=== PATIENT | female | born 1960 | race Caucasian/White ===

== ENCOUNTER 2018-01-28 11:28 | Emergency (ER) | payer OTHER, MEDICAID, SELFPAY ==
[2018-01-28 11:32] VITALS: BP 169/87; PULSE 91; RESP 16; TEMP 36.8; O2SAT 97; BMI 33.3
--- NOTE | 2018-01-28 11:47 | DI.RAD.S_ITS ---
PROCEDURE: XR FINGER LT MIN 2V INDICATIONS: 57 year-old female with left second finger laceration. TECHNIQUE: AP hand, 2 views of the left second finger(s) acquired. COMPARISON: [facility], CR, KNEE 3V LEFT, 09/03/2010, 15:01. FINDINGS: Bones: No fractures or dislocations. No suspicious bony lesions. Soft tissues: No radiopaque soft tissue foreign bodies. There is linear soft tissue defect involving the left second fingertip. IMPRESSION: Left second fingertip soft tissue injury, without radiopaque foreign bodies or underlying bony injuries. Dictated by: Zoran Guaman M.D. on 01/28/2018 at 12:34 Approved by: Zoran Guaman M.D. on 01/28/2018 at 12:36
--- NOTE | 2018-01-28 12:15 | ED.WOUNDLAC ---
HPI - Wound/Laceration General Chief Complaint: Wound/Laceration Stated Complaint: 'I NEED STICHES' Time Seen by Provider: 01/28/18 12:04 Source: patient Mode of arrival: ambulatory Limitations: no limitations History of Present Illness HPI narrative: This right-handed female was using an electric hedge clipper when she went to move the cord and cut her finger on the blade. This happened about 90 min prior to arrival. She states that it had been bleeding and throbbing, more dull pain now. She denies any weakness or paresthesias. She denies any other injury, any LOC or weakness. She states that her tetanus vaccine was updated about 1 year ago. Related Data Home Medications Medication Instructions Recorded Confirmed isotretinoin [Absorica] 10 mg PO Q DAY #0 11/16/16 etodolac 400 mg PO BID #0 06/18/17 pregabalin [Lyrica] 50 mg PO TID #0 11/02/17 Previous Rx's Medication Instructions Recorded omeprazole magnesium [Prilosec OTC] 40 mg PO QDAY #60 tab 11/02/17 fluticasone 1 spray INTRANASAL SEE 11/19/17 INSTRUCTIONS #16 gm methocarbamol 1,500 mg PO Q6HP PRN #60 tab 12/14/17 Allergies Allergy/AdvReac Type Severity Reaction Status Date / Time meperidine [From DEMEROL] Allergy Unknown Verified 01/28/18 11:32 GENERAL ANESTHESIA Allergy Severe BRADYCARDIA, Uncoded 01/28/18 11:32 VERY SLOW TO WAKE UP Review of Systems Review of Systems All systems reviewed & are unremarkable except as noted in HPI and below PFSH Surgical History History of tonsillectomy Status post endoscopy Status post tubal ligation Family History Child Diabetes mellitus Child Age: 37 Environmental allergies Edema Child Age: 33 Fibromyalgia Diabetes mellitus Endometriosis Gallstones Father Heart disease High cholesterol Emphysema lung Mother Diabetes mellitus Hypertension Arthritis Sister Fibromyalgia Cushings syndrome Addisons disease Hyperthyroidism Sister Fibromyalgia High cholesterol Sister Fibromyalgia Emphysema lung COPD (chronic obstructive pulmonary disease) Arthritis Exam Narrative Exam Narrative: GENERAL APPEARANCE: Patient sitting comfortably, in no distress. LUNGS: Clear to auscultation bilaterally. HEART: Rate and rhythm regular without murmur, normal S1 and S2, no S3 or S4. DERM: L. PF there are 2 curvilinear lacerations, one inside the other, at the distal central pad. Edges are 5cm each (each wound 1cm total length), width 3-6mm (irregular). Deepest depth 4mm, deeper on the medial side. There does not appear to be any nail damage. No active bleeding. No visible tendon, muscle, or FB MS: L. PF full AROM with strength intact against resistance in all mcdonald NV: L. PF sensation is grossly intact, nail is warm and pink with brisk cap refill Procedures Joint Aspiration/Injection Laceration 1: Site: hand Side (If applicable): left (1cm curvilinear with partial avulsion) Local Anesthetic: lidocaine 2% Amount of anesthesia used (mL): 3 Pre-repair: wound explored, irrigated extensively and deep structures intact Skin layer closed with: nylon Size (cm): 5-0 Number of sutures: 5 Technique: simple, interrupted MDM - Wound/Laceration Differential Diagnosis Differential diagnosis: Likely laceration Imaging Data xray hand: Radiologist's impression: PATIENT NAME: CHRIS HATFIELD : 1960 EXAM DATE: 01/28/2018 11:[address] FRIDA JACKSON D.O. CC: MODALITY: CR PATIENT TYPE: Pre CONTRAST MEDIA: STATION ID: [id number] FLUORO TIME: PROCEDURE: XR FINGER LT MIN 2V INDICATIONS: 57 year-old female with left second finger laceration. TECHNIQUE: AP hand, 2 views of the left second finger(s) acquired. COMPARISON: [facility], , KNEE 3V LEFT, 09/03/2010, 15:01. FINDINGS: Bones: No fractures or dislocations. No suspicious bony lesions. Soft tissues: No radiopaque soft tissue foreign bodies. There is linear soft tissue defect involving the left second fingertip. IMPRESSION: Left second fingertip soft tissue injury, without radiopaque foreign bodies or underlying bony injuries. Dictated by: Zoran Guaman M.D. on 01/28/2018 at 12:34 Approved by: Zoran Guaman M.D. on 01/28/2018 at 12:36 Course Hospital Course: Laceration was irregular over the finger tip. One suture was placed through the partially avulsed skin as an anchor, others were placed over. It does appear viable at this point, but did advise patient it is possible that this skin may not heal and needs to be sure to have this recheck Orders Ordered: ED Orders 01/28/18 11:47 XR finger LT min 2V Stat Last Vital Signs Temp 98.3 F 01/28/18 11:32 Pulse 65 01/28/18 14:13 Resp 18 01/28/18 14:13 BP 179/94 H 01/28/18 14:13 Pulse Ox 98 01/28/18 14:13 Discharge Plan Departure Patient Disposition: Home, Self-Care Clinical Impression: Laceration of left index finger Discharge Date/Time: 01/28/18 14:14 Interventions: ED Discharge Assessment Last Done: 01/28/18 14:13 Instructions: DI for Laceration Repair Activity Restrictions/Additional Instructions: Keep the wound clean and dry. Monitor for any signs of infection as we talked about and see your PCP or return right away if any. You should have a suture check in 6-7 days and these will probably be ready for removal. As we talked about, it is not clear whether the skin in the middle of the wound is viable due to the bruising but it appears so now. I have placed 1 suture through the skin and the others over it to tack it down and help it heal on the shallower side. Wear the splint for protection and comfort Prescriptions: No Action isotretinoin [Absorica] 10 MG capsule 10 mg PO Q DAY Qty: 0 RF: 0 etodolac 400 MG tablet 400 mg PO BID Qty: 0 RF: 0 pregabalin [Lyrica] 50 MG capsule 50 mg PO TID Qty: 0 RF: 0 omeprazole magnesium [Prilosec OTC] 20 MG tablet,delayed release (DR/EC) 40 mg PO QDAY Qty: 60 RF: 0 fluticasone 16 GM spray,suspension 1 spray Intranasal SEE INSTRUCTIONS Qty: 16 RF: 5 methocarbamol 750 MG tablet 1,500 mg PO Q6HP PRNQty: 60 RF: 1 Referrals: Scott Mckinney MD [Primary Care Provider] -
--- NOTE | 2018-01-28 13:52 | PC.NURSE ---
fishfader repaired suture index finger. site cleaned with hibiclens and saline, dried, bacitracin ointment applied with tube messi, also with metal splint applied. +dcms noted pt with facial expression, with severe pain, pt states, only can take oxycodone 10mg. bp 181/100 provider made aware. no new orders.
[2018-01-28 13:57] VITALS: BP 181/100; PULSE 66; RESP 18; O2SAT 97
[2018-01-28 14:13] VITALS: BP 179/94; PULSE 65; RESP 18; O2SAT 98
== END 2018-01-28 14:14 | disposition home or self-care (01) ==
PROVIDERS: Emergency Provider Internal Medicine; PCP Family Medicine
DX: S61.211A Laceration without foreign body of left index finger without damage to nail, initial encounter (principal); X58.XXXA Exposure to other specified factors, initial encounter
CPT/HCPCS: 12001; 73140; 99283

== ENCOUNTER → 2018-02-15 08:23 | Outpatient (CLI) | payer OTHER, MEDICAID, SELFPAY ==
[2018-02-15 10:05] LABS: Alanine Aminotransferase 32 IU/L (9-52); Aspartate Aminotransferase 28 IU/L (14-36); Cholesterol 264 mg/dL (140-199); HDL Cholesterol 89 mg/dL (40-60); LDL Cholesterol Calculated 133 mg/dL (<100); Triglycerides 208 mg/dL (35-150)
[2018-02-17 01:17] LABS: (tTG) Ab, IgA < 3 U/mL (< 4)
== END ==
PROVIDERS: PCP Family Medicine; Visit Provider Dermatology
DX: M79.7 Fibromyalgia (principal); Z79.899 Other long term (current) drug therapy
CPT/HCPCS: 36415; 80061; 83516; 84450; 84460; 86255

== ENCOUNTER → 2018-03-22 07:19 | Outpatient (CLI) | payer OTHER, MEDICAID, SELFPAY ==
[2018-03-22 08:55] LABS: BUN Creatinine Ratio 31.3 (6-22); Blood Urea Nitrogen 25 mg/dL (7-17); Calcium 9.2 mg/dL (8.4-10.2); Carbon Dioxide 28 mmol/L (22-32); Chloride 102 mmol/L (98-107); Estimated Glomerular Filt Rate > 60.0 mL/min (>60); Glucose 93 mg/dL (70-100); HEMOLYSIS < 15 (0-50); Potassium 4.6 mmol/L (3.4-5.1); Sodium 142 mmol/L (137-145)
[2018-03-22 08:57] LABS: Hemoglobin A1C% w Est Avg Glu 5.7 % (4.0-6.0)
== END ==
PROVIDERS: PCP Family Medicine; Visit Provider Family Medicine
DX: R63.2 Polyphagia (principal); E16.2 Hypoglycemia, unspecified
CPT/HCPCS: 36415; 80048; 83036

== ENCOUNTER → 2018-06-17 08:38 | Outpatient (CLI) | payer OTHER, MEDICAID, SELFPAY ==
--- NOTE | 2018-06-17 | DI.MRI.S_ITS ---
PROCEDURE: MR CERVICAL SPINE WO CON INDICATIONS: CERVICAL RADICULOPATHY TECHNIQUE: Noncontrast sagittal T1 spin echo and T2 fast spin echo, sagittal STIR, foraminal oblique sagittal T2 fast spin echo, and axial gradient echo or T2 fast spin echo through the cervical spine. COMPARISON: Located Within [facility], MR, C-SPINE WITHOUT CONTRAST, 12/29/2016, 16:56. FINDINGS: Image quality: Excellent. Alignment and Curvature: There is loss of normal cervical lordosis. There is mild grade 1 anterolisthesis of C7 on T1. Bone Marrow: Marrow demonstrates normal overall signal. There is mild reactive signal within the endplates adjacent to the C3-C4, C4-C5, C5-C6, and C6-C7 intervertebral discs. Spinal Cord: Visualized spinal cord has normal size and signal. No cerebellar tonsillar herniation. Paraspinous Soft Tissues: No paravertebral masses. Prevertebral soft tissues are normal in thickness. C2-C3: Disc desiccation. Bilateral facet hypertrophy. Mild canal stenosis. No foraminal stenosis. No change. C3-C4: Congenital canal stenosis. Mild disc desiccation and diffuse disc bulge. Moderate facet and uncovertebral hypertrophy. Moderate canal stenosis. Moderate left and mild right foraminal stenosis. No change. C4-C5: Moderate disc desiccation. Mild diffuse disc bulge. Congenital canal stenosis. Moderate bilateral facet and uncovertebral hypertrophy. Moderate canal stenosis. Moderate left greater than right foraminal stenosis. No change. C5-C6: Moderate disc desiccation and moderate diffuse disc bulge. Moderate disc height loss. Congenital canal stenosis. Moderate facet and uncovertebral hypertrophy. Moderate to severe canal stenosis. Minimal cord flattening. Moderate foraminal stenosis bilaterally. No change. C6-C7: Moderate disc desiccation and moderate diffuse disc bulge. Mild disc of loss. Congenital canal stenosis. Bilateral mild facet and uncovertebral hypertrophy. Moderate canal stenosis. Mild foraminal stenosis bilaterally. No change. C7-T1: Mild disc loss and desiccation. Mild diffuse disc bulge. Mild facet and uncovertebral hypertrophy bilaterally. Mild canal stenosis. Mild bilateral foraminal stenosis. No change. IMPRESSION: 1. Diffuse congenital canal stenosis, with superimposed disc and facet disease, as well as uncovertebral hypertrophy. 2. Multilevel canal stenoses, worst at C5-C6, where there is minimal cord flattening, as before. 3. No change in multilevel foraminal stenoses as described above. Dictated by: Jodi Vanessa M.D. on 06/17/2018 at 9:52 Approved by: Jodi Vanessa M.D. on 06/17/2018 at 10:01
== END ==
PROVIDERS: PCP Family Medicine; Visit Provider Neurological Surgery
DX: M50.11 Cervical disc disorder with radiculopathy, high cervical region (principal); M48.02 Spinal stenosis, cervical region
CPT/HCPCS: 72141

== ENCOUNTER → 2018-09-28 15:21 | Outpatient (CLI) | payer OTHER, MEDICAID, SELFPAY ==
[2018-09-28 16:41] LABS: Erythrocyte Sedimentation Rate 36 MM/HR (0-20)
== END ==
PROVIDERS: PCP Family Medicine; Visit Provider Specialist
DX: M31.6 Other giant cell arteritis (principal)
CPT/HCPCS: 36415; 85651; 86140

== ENCOUNTER → 2018-11-24 12:57 | Outpatient (CLI) | payer OTHER, MEDICAID, SELFPAY ==
--- NOTE | 2018-11-24 13:01 | DI.MRI.S_ITS ---
PROCEDURE: MR HEAD/BRAIN WO CON INDICATIONS: Rule out mass lesion TECHNIQUE: Non-contrast axial T1 spin echo, axial T2 fast spin echo, sagittal and axial FLAIR, coronal T2 fast spin echo, axial gradient echo, axial diffusion and ADC through the brain. COMPARISON: None. FINDINGS: Image quality: Excellent. CSF spaces: Ventricles appear symmetric in size and shape. Basal cisterns are patent. No extra-axial fluid collections. Brain: No intracranial bleeds or mass effects. There is cerebral volume loss for age. There are periventricular and deep white matter chronic small vessel ischemic changes. Brainstem appears normal. Diffusion-weighted images show no acute ischemic insults. No chronic ischemic insults. Normal intravascular flow voids are present. Skull and face: Calvarial bone marrow is normal in signal. Orbits are normal. Sinuses: Sinuses and mastoids are clear. IMPRESSION: Negative evaluation of the internal auditory canals and brain. Negative evaluation of the orbits. No acute process. Dictated by: Jodi Vanessa M.D. on 11/24/2018 at 14:48 Approved by: Jodi Vanessa M.D. on 11/24/2018 at 14:51
--- NOTE | 2018-11-24 13:01 | DI.MRI.S_ITS ---
PROCEDURE: MR ANGIO HEAD WO CON INDICATIONS: Right eye pain and right temporal pain. r/o mass TECHNIQUE: Noncontrast axial 3-D [id number] MR angiogram, with 3-dimensional maximum intensity projection (MIP) reformats of the internal carotid arteries and posterior circulation then performed. COMPARISON: [facility], , MR HEAD/BRAIN WO CON, 11/24/2018, 13:52. FINDINGS: Image quality: Excellent. Anterior circulation: Intracranial internal carotid arteries demonstrate normal size and intraluminal flow signal. The flow within the paired anterior cerebral arteries is normal and symmetric. The flow within the middle cerebral arteries is normal and symmetric. The anterior communicating artery is seen. No stenoses, occlusions, or aneurysms. Posterior circulation: Visualized portions of the vertebral arteries demonstrate normal caliber, and join to form a normal appearing basilar artery. Patient is right vertebral artery dominant. The flow within the posterior cerebral arteries is normal and symmetric. No stenoses, occlusions, or aneurysms. IMPRESSION: Negative examination. Dictated by: Alma Bloom MD, PhD on 11/24/2018 at 15:02 Approved by: Alma Bloom MD, PhD on 11/24/2018 at 15:05
== END ==
PROVIDERS: PCP Family Medicine; Visit Provider Family Medicine
DX: G50.0 Trigeminal neuralgia (principal); H57.11 Ocular pain, right eye
CPT/HCPCS: 70544; 70551

== ENCOUNTER → 2020-11-05 16:06 | Outpatient (CLI) | payer OTHER, MEDICAID, SELFPAY | PROVIDERS: PCP Family Medicine; Visit Provider Family Medicine | DX: R32 Unspecified urinary incontinence (principal) | CPT/HCPCS: 87086 ==

== ENCOUNTER 2020-11-14 11:15 | Outpatient (RCR) | payer OTHER, MEDICAID, SELFPAY ==
--- NOTE | 2020-08-20 16:46 | PT.OIE ---
Current Diagnoses Other acquired deformities of right foot (08/20/20) Other acquired deformities of unspecified foot (08/20/20) Plantar fascial fibromatosis (08/20/20) Past Medical History (Last Reviewed 09/28/18 @ 14:37 by Sourav Steward PA-C) Acne (~1990) Bronchitis Chicken pox (~1958) Elbow pain (~2012) Foot pain (~2012) Gastric ulcer (~1999) GERD (gastroesophageal reflux disease) (~1999) Hemicrania continua History of urinary incontinence (~1980) Migraines Seasonal allergies (~1977) Wrist pain (~2005) Past Surgical History (Last Reviewed 09/28/18 @ 14:37 by Sourav Steward PA-C) Anesthesia History of tonsillectomy (~1970) Status post endoscopy (~2000) Status post tubal ligation (~1981) Visit Care Team Role Provider Type Scott Mckinney MD Primary Care Provider Physician Specialty: Family Practice Address: [address] [place] [address], [id number] Email: [email or web address] Ben David DPM Attending Provider Non-Staff Referring Provider Specialty: Podiatry Address: [address] [place] [address], [id number] Email: Physical Therapy Initial Evaluation PT-OP-A Visit Information Start: 08/20/20 15:04 Freq: Status: Active Protocol: Document 08/20/20 15:04 (Rec: 08/20/20 15:15 [email or web address]) Out-Patient Physical Therapy Visit Information Visit Information Visit Type Initial Evaluation Visit Start Time 14:18 Visit Stop Time 15:00 Total Visit Minutes 42 Visit Number 1/ Number of 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 Her pain started getting worse since 5-6 months ago who started walking her dogs daily for 2-3 blocks each time. Her pain level is 9/10 on L and 7/10 on R. Pt went to see and dx with B plantar fasciatis. She c/o worse pain in the morning especially the first few steps after she gets up. Prolonged standing and walking also increase her pain. Pt stated that she is pretty much home bound at this point who does gorcery shop twice a week only d/t significant heel pain. Treatment Goals Patient/Caregiver Goals 1. To be pain free at both heels for standing and walking 2. To be able to walk her dog at outdoor in a daily basis Personal Factors Other Personal Factors That May Effect fibromyalgia Therapy/Recovery PT-OP-C Subjective Start: 08/20/20 15:04 Freq: Status: Active Protocol: Document 08/20/20 15:04 HH (Rec: 08/20/20 15:15 [email or web address]) Patient Questionnaires Foot & Ankle Ability Measure- ADL and Sports FAAM-ADL Score 23 FAAM-ADL Impairment 60 to 79% Impaired (Score 16- 32) FAAM-Sport Impairment 80 to 99% Impaired (Score 1-5) Lower Extremity Functional Scale LEFS Score 24 LEFS Impairment 60 to 79% Impaired (Score 17- 31) OP-PT Pain Assessment Location L heel Pain Location Details heel and insertion of plantar fascia Intensity 9 Scale Used Numeric (0 - 10) Description Aching,With Movement Frequency Constant Pain Aggravating Factors Position,ADL's,Activity, Exercise,Standing,Walking, Stair Climbing Pain Alleviating Factors Inactivity,Lying Supine R heel Pain Location Details heel and insertion of plantar fascia Intensity 7 Scale Used Numeric (0 - 10) Description Aching,With Movement Frequency Constant Pain Aggravating Factors Position,ADL's,Activity, Exercise,Standing,Walking, Stair Climbing Pain Alleviating Factors Inactivity,Lying Supine PT-OP-D Balance Start: 08/20/20 15:04 Freq: Status: Active Protocol: Document 08/20/20 15:04 HH (Rec: 08/20/20 15:15 [email or web address]) Balance Tests Single Limb Standing Single Limb- Right 8 Single Limb- Left 5 PT-OP-F Manual Assessment Start: 08/20/20 15:04 Freq: Status: Active Protocol: Document 08/20/20 15:04 (Rec: 08/20/20 16:46 [email or web address]) Manual Assessments Soft Tissue Assessment Soft Tissue Mobility Assessment significant tenderness to pressure at (L worse than R) insertion of plantar fascia , gastro, achilles insertion bilaterally PT-OP-G Mobility & Gait Start: 08/20/20 15:04 Freq: Status: Active Protocol: Document 08/20/20 15:04 (Rec: 08/20/20 16:46 [email or web address]) OP Gait Assessment Gait Deviations General Gait Pattern Decreased Stride Length, Decreased Feet Clearance Factors Limiting Gait Function Factors Limiting Gait Function Decreased Activity Tolerance, Decreased Strength,Limited Range of Motion,Pain,Poor Balance Comments Gait Comments pt amb with flat foot gait = lack of heel strike and toe push off ( L worse with R) PT-OP-K Range of Motion Start: 08/20/20 15:04 Freq: Status: Active Protocol: Document 08/20/20 15:04 (Rec: 08/20/20 16:46 [email or web address]) Hip Goniometric Range of Motion Hip Right Passive Straight Leg Raise 70 Left Passive Straight Leg Raise 60 Ankle and Foot Goniometric Range of Motion Ankle and Foot Right Active Ankle/Foot ROM WFL No Testing Position Supine Dorsiflexion with Knee Flexed 0 Dorsiflexion with Knee Extended 13 Plantarflexion 40 Inversion 25 Comments B calf raises= 9 times (not full range d/t pain) Left Active Ankle/Foot ROM WFL No Testing Position Supine Dorsiflexion with Knee Flexed 7 Inversion 33 Eversion 23 Comments DF with knee extended = -4 into PF B calf raises= 9 times (not full range d/t pain) Toe Range of Motion Toe Left Great Toe Toe ROM WFL No MTP Flexion Active (degrees) 18 MTP Extension Active (degrees) 20 Right Great Toe Toe ROM WFL No MTP Flexion Active (degrees) 40 MTP Extension Active (degrees) 30 PT-OP-M Strength Start: 08/20/20 15:04 Freq: Status: Active Protocol: Document 08/20/20 15:04 (Rec: 08/20/20 16:46 [email or web address]) Hip Strength Hip Manual Muscle Testing Right Flexion (L2) 4- Good- Extension (S1) 4- Good- Abduction 3+ Fair+ Adduction 4 Good Left Flexion (L2) 4- Good- Extension (S1) 4- Good- Abduction 3+ Fair+ Adduction 4- Good- Knee Strength Knee Manual Muscle Testing Right Flexion (S2) 4 Good Extension (L3) 4+ Good+ Left Flexion (S2) 4 Good Extension (L3) 4+ Good+ Ankle/Foot Strength Ankle and Foot Manual Muscle Testing Right Dorsiflexion (L4) 4 Good Plantarflexion (S1) 3+ Fair+ Inversion 4- Good- Eversion (S1) 4- Good- Left Dorsiflexion (L4) 4- Good- Plantarflexion (S1) 3+ Fair+ Inversion 4- Good- Eversion (S1) 4- Good- PT-OP-Q Treatments Start: 08/20/20 15:04 Freq: Status: Active Protocol: Document 08/20/20 15:04 (Rec: 08/20/20 16:46 [email or web address]) Manual Therapy Treatment Soft Tissue Mobilization gastro Body Location bilateral Mobilization Type Myofascial Release,Sustained Pressure,Trigger Point Release Intensity/Depth Moderate Body Position Prone Comments tenderness medial > lateral PT-OP-T Assessment and Plan Start: 08/20/20 15:04 Freq: Status: Active Protocol: Document 08/20/20 15:04 (Rec: 08/20/20 16:46 [email or web address]) Physical Therapy Assessment Rehab Potential Rehabilitation Potential Excellent Evaluation Complexity Number of Personal Factors/Comorbidities 1-2 Number of Body Systems Impaired 1-2 Clinical Presentation at Evaluation Stable Impairments Impairments Activity Tolerance,Balance, Edema,Functional Activities, Functional Mobility,Gait,Pain, Posture,ROM,Soft Tissue Mobility,Strength Goals return to walking Impairment unable to tolerate grocery shopping Short Term Goal (STG) pt will be able to complete grocery shopping at [employer] with pain no more than 5. STG Duration 5 weeks Charge Lpn Goal (LTG) pt will be able to walk her dog daily for 3 blocks with pain no more than 3/10 LTG Duration 10 weeks ROM Impairment pt has very limited DF d/t calf tightness Short Term Goal (STG) pt will gain up to 5 degrees of DF bilaterally with knee extended. STG Duration 5 weeks Senior Living Goal (LTG) pt will gain up to 10 degrees of DF bilaterally with knee extended so she can demonstrate heel strike during initial contact. LTG Duration 10 weeks FAAM Impairment pt scores 21 on FAAM (ADLs) Short Term Goal (STG) pt will score 30 or above on FAAM (ADLS) to improve her ankle mobility and strength for functional activities. STG Duration 5 weeks Senior Living Goal (LTG) pt will score 40 or above on FAAM (ADLS) to improve her ankle mobility and strength for functional activities. LTG Duration 10 weeks LEFS Impairment pt scores 24 on LEFS Short Term Goal (STG) pt will score 35 or above on LEFS to improve her quality of life STG Duration 5 weeks Senior Living Goal (LTG) pt will score 40 or above on LEFS to improve her quality of life LTG Duration 10 weeks Assessment Summary Assessment Pt is a 60 yo female here for B heel pain with difficulty in walking and standing. Upon assessment, pt presents B plantar fasciitis L worse than R. She presents significant tightness at B gastronemius complex who's DF are only (R= 0, L= 4 into PF) with knee extended but WFL with knee flexed (R=13,L=7). Pt overall shows poor posterior chain flexibility and she has significant tenderness to pressure at B gastro. She also has poor ankle strength, mobility and balance who demonstrates flat foot gait pattern with dec heel strikes and toes push off. Pt will benefit from skilled therapy to improve her ankle mobility, strength, balance in order for her to return to her daily walking routine with proper gait mechanics in pain free. Physical Therapy Plan Frequency and Duration Frequency of Treatment 2x/wk x2, 1x/wk x 4 Duration of Treatment 10 weeks Plan of Care Start Date 08/20/20 Plan of Care End Date 11/03/20 Therapeutic Interventions Therapeutic Interventions Aquatic Therapy,Balance Training,Gait Training,Home Exercise Program,Joint Mobilizations,Manual Therapy, Neuromuscular Re-education, Orthotic/Prosthetic Management ,Patient/Caregiver Education, Self-Care/Home Management,Soft Tissue Mobilization,Taping, Therapeutic Activities, Therapeutic Exercises Modalities Cold Pack/Ice Massage,Electric Stimulation,Hot Packs, Infrared Therapy,Ultrasound Next Visit Focus/Plan Next Note Type Treatment Note Next Visit Plan manual , STM on gastro calf stretch, big toe stretch toe curl, short foot
--- NOTE | 2020-08-20 16:46 | PT.OPPOC ---
Physical, Occupational & Speech Therapy At [facility] Current Diagnoses Other acquired deformities of right foot (08/20/20) Other acquired deformities of unspecified foot (08/20/20) Plantar fascial fibromatosis (08/20/20) Visit Care Team Role Provider Type Scott Mckinney MD Primary Care Provider Physician Specialty: Family Practice Address: [address] [place] [address], [id number] Email: [email or web address] DPM Attending Provider Non-Staff Referring Provider Specialty: Podiatry Address: [address] [place] [address], [phone] Email: Plan Of Care PT-OP-T Assessment and Plan Start: 08/20/20 15:04 Freq: Status: Active Protocol: Document 08/20/20 15:04 (Rec: 08/20/20 16:46 [email or web address]) Physical Therapy Assessment Rehab Potential Rehabilitation Potential Excellent Evaluation Complexity Number of Personal Factors/Comorbidities 1-2 Number of Body Systems Impaired 1-2 Clinical Presentation at Evaluation Stable Impairments Impairments Activity Tolerance,Balance, Edema,Functional Activities, Functional Mobility,Gait,Pain, Posture,ROM,Soft Tissue Mobility,Strength Goals return to walking Impairment unable to tolerate grocery shopping Short Term Goal (STG) pt will be able to complete grocery shopping at [facility] with pain no more than 5. STG Duration 5 weeks Longterm Goal (LTG) pt will be able to walk her dog daily for 3 blocks with pain no more than 3/10 LTG Duration 10 weeks ROM Impairment pt has very limited DF d/t calf tightness Short Term Goal (STG) pt will gain up to 5 degrees of DF bilaterally with knee extended. STG Duration 5 weeks Longterm Goal (LTG) pt will gain up to 10 degrees of DF bilaterally with knee extended so she can demonstrate heel strike during initial contact. LTG Duration 10 weeks FAAM Impairment pt scores 21 on FAAM (ADLs) Short Term Goal (STG) pt will score 30 or above on FAAM (ADLS) to improve her ankle mobility and strength for functional activities. STG Duration 5 weeks Penology Professor Goal (LTG) pt will score 40 or above on FAAM (ADLS) to improve her ankle mobility and strength for functional activities. LTG Duration 10 weeks LEFS Impairment pt scores 24 on LEFS Short Term Goal (STG) pt will score 35 or above on LEFS to improve her quality of life STG Duration 5 weeks Penology Professor Goal (LTG) pt will score 40 or above on LEFS to improve her quality of life LTG Duration 10 weeks Assessment Summary Assessment Pt is a 60 yo female here for B heel pain with difficulty in walking and standing. Upon assessment, pt presents B plantar fasciitis L worse than R. She presents significant tightness at B gastronemius complex who's DF are only (R= 0, L= 4 into PF) with knee extended but WFL with knee flexed (R=13,L=7). Pt overall shows poor posterior chain flexibility and she has significant tenderness to pressure at B gastro. She also has poor ankle strength, mobility and balance who demonstrates flat foot gait pattern with dec heel strikes and toes push off. Pt will benefit from skilled therapy to improve her ankle mobility, strength, balance in order for her to return to her daily walking routine with proper gait mechanics in pain free. Physical Therapy Plan Frequency and Duration Frequency of Treatment 2x/wk x2, 1x/wk x 4 Duration of Treatment 10 weeks Plan of Care Start Date 08/20/20 Plan of Care End Date 11/03/20 Therapeutic Interventions Therapeutic Interventions Aquatic Therapy,Balance Training,Gait Training,Home Exercise Program,Joint Mobilizations,Manual Therapy, Neuromuscular Re-education, Orthotic/Prosthetic Management ,Patient/Caregiver Education, Self-Care/Home Management,Soft Tissue Mobilization,Taping, Therapeutic Activities, Therapeutic Exercises Modalities Cold Pack/Ice Massage,Electric Stimulation,Hot Packs, Infrared Therapy,Ultrasound Next Visit Focus/Plan Next Note Type Treatment Note Next Visit Plan manual , STM on gastro calf stretch, big toe stretch toe curl, short foot Plan of Care Dates Plan of Care Start Date 08/20/20 Plan of Care End Date 11/03/20 Electronically Signed by: Merary Jaimes, PT 08/20/20 [id number] Please Sign and Return: I have reviewed this Plan of Care and certify that the skilled therapy services above are required to meet the patient?s needs. Physician Signature Date Printed Name and Credentials Clinical Instructor Signature Printed Name and Credentials
--- NOTE | 2020-08-22 16:10 | PT.OTN ---
Current Diagnoses Other acquired deformities of right foot (08/22/20) Other acquired deformities of unspecified foot (08/22/20) Plantar fascial fibromatosis (08/22/20) Physical Therapy Treatment Note PT-OP-A Visit Information Start: 08/20/20 15:04 Freq: Status: Active Protocol: Document 08/22/20 15:21 HH (Rec: 08/22/20 16:10 [id number]) Out-Patient Physical Therapy Visit Information Visit Information Visit Type Treatment Note Visit Start Time 15:18 Visit Stop Time 16:00 Total Visit Minutes 42 Visit Number 2/9 Number of ENGINEER CHIEF Visits 0 PT-OP-B Current Condition Start: 08/20/20 15:04 Freq: Status: Active Protocol: Document 08/20/20 15:04 HH (Rec: 08/20/20 15:15 [email or web address]) Current Condition History of Current Condition Onset Date 5-6 months ago Current Complaints B heel pain L worse than R, difficulty in walking and standing History of Current Condition Pt is a 60yo female here for chronic bilateral heel pain L worse than R. Her pain started getting worse since 5-6 months ago who started walking her dogs daily for 2-3 blocks each time. Her pain level is 9/10 on L and 7/10 on R. Pt went to see and dx with B plantar fasciatis. She c/o worse pain in the morning especially the first few steps after she gets up. Prolonged standing and walking also increase her pain. Pt stated that she is pretty much home bound at this point who does gorcery shop twice a week only d/t significant heel pain. Treatment Goals Patient/Caregiver Goals 1. To be pain free at both heels for standing and walking 2. To be able to walk her dog at outdoor in a daily basis Personal Factors Other Personal Factors That May Effect fibromyalgia Therapy/Recovery PT-OP-C Subjective Start: 08/20/20 15:04 Freq: Status: Active Protocol: Document 08/22/20 15:21 HH (Rec: 08/22/20 16:10 [id number]) OP-PT Subjective Patient Comments Patient Comments Im doing okay today Patient Reported Progress Same PT-OP-D Balance Start: 08/20/20 15:04 Freq: Status: Active Protocol: Document 08/20/20 15:04 HH (Rec: 08/20/20 15:15 [email or web address]) Balance Tests Single Limb Standing Single Limb- Right 8 Single Limb- Left 5 PT-OP-F Manual Assessment Start: 08/20/20 15:04 Freq: Status: Active Protocol: Document 08/20/20 15:04 (Rec: 08/20/20 16:46 [email or web address]) Manual Assessments Soft Tissue Assessment Soft Tissue Mobility Assessment significant tenderness to pressure at (L worse than R) insertion of plantar fascia , gastro, achilles insertion bilaterally PT-OP-G Mobility & Gait Start: 08/20/20 15:04 Freq: Status: Active Protocol: Document 08/20/20 15:04 (Rec: 08/20/20 16:46 [email or web address]) OP Gait Assessment Gait Deviations General Gait Pattern Decreased Stride Length, Decreased Feet Clearance Factors Limiting Gait Function Factors Limiting Gait Function Decreased Activity Tolerance, Decreased Strength,Limited Range of Motion,Pain,Poor Balance Comments Gait Comments pt amb with flat foot gait = lack of heel strike and toe push off ( L worse with R) PT-OP-K Range of Motion Start: 08/20/20 15:04 Freq: Status: Active Protocol: Document 08/20/20 15:04 (Rec: 08/20/20 16:46 [email or web address]) Hip Goniometric Range of Motion Hip Right Passive Straight Leg Raise 70 Left Passive Straight Leg Raise 60 Ankle and Foot Goniometric Range of Motion Ankle and Foot Right Active Ankle/Foot ROM WFL No Testing Position Supine Dorsiflexion with Knee Flexed 0 Dorsiflexion with Knee Extended 13 Plantarflexion 40 Inversion 25 Comments B calf raises= 9 times (not full range d/t pain) Left Active Ankle/Foot ROM WFL No Testing Position Supine Dorsiflexion with Knee Flexed 7 Inversion 33 Eversion 23 Comments DF with knee extended = -4 into PF B calf raises= 9 times (not full range d/t pain) Toe Range of Motion Toe Left Great Toe Toe ROM WFL No MTP Flexion Active (degrees) 18 MTP Extension Active (degrees) 20 Right Great Toe Toe ROM WFL No MTP Flexion Active (degrees) 40 MTP Extension Active (degrees) 30 PT-OP-M Strength Start: 08/20/20 15:04 Freq: Status: Active Protocol: Document 08/20/20 15:04 (Rec: 08/20/20 16:46 [email or web address]) Hip Strength Hip Manual Muscle Testing Right Flexion (L2) 4- Good- Extension (S1) 4- Good- Abduction 3+ Fair+ Adduction 4 Good Left Flexion (L2) 4- Good- Extension (S1) 4- Good- Abduction 3+ Fair+ Adduction 4- Good- Knee Strength Knee Manual Muscle Testing Right Flexion (S2) 4 Good Extension (L3) 4+ Good+ Left Flexion (S2) 4 Good Extension (L3) 4+ Good+ Ankle/Foot Strength Ankle and Foot Manual Muscle Testing Right Dorsiflexion (L4) 4 Good Plantarflexion (S1) 3+ Fair+ Inversion 4- Good- Eversion (S1) 4- Good- Left Dorsiflexion (L4) 4- Good- Plantarflexion (S1) 3+ Fair+ Inversion 4- Good- Eversion (S1) 4- Good- PT-OP-Q Treatments Start: 08/20/20 15:04 Freq: Status: Active Protocol: Document 08/22/20 15:21 (Rec: 08/22/20 16:10 [id number]) Therapeutic Exercises Supine Exercises passive DF stretch Side bilateral Reps/Minutes 10 sec x 5 Comments PT assisted Sitting Exercises ankle DF and PF Side bilateral Reps/Minutes 10 x2 Comments DF and PF tennis ball release Sitting Exercise Name at plantar fascia Side bilateral Comments for HEP plantar fascia stretch Side bilateral Comments for HEP Standing Exercises gastro stretch Standing Exercise Name staggered stance Side bilateral Reps/Minutes 10 sec hold x4 Comments cues for foot alignment Manual Therapy Treatment Soft Tissue Mobilization anterior tib Mobilization Type Sustained Pressure,Trigger Point Release Intensity/Depth Moderate Body Position Supine plantar fascia Mobilization Type Sustained Pressure,Trigger Point Release Intensity/Depth Moderate Body Position Supine gastro Body Location bilateral Mobilization Type Myofascial Release,Sustained Pressure,Trigger Point Release Intensity/Depth Moderate Body Position Prone Comments tenderness medial > lateral PT-OP-T Assessment and Plan Start: 08/20/20 15:04 Freq: Status: Active Protocol: Document 08/22/20 15:21 (Rec: 08/22/20 16:10 [id number]) Physical Therapy Assessment Goals return to walking Impairment unable to tolerate grocery shopping Short Term Goal (STG) pt will be able to complete grocery shopping at [facility] with pain no more than 5. STG Duration 5 weeks Custodial Goal (LTG) pt will be able to walk her dog daily for 3 blocks with pain no more than 3/10 LTG Duration 10 weeks ROM Impairment pt has very limited DF d/t calf tightness Short Term Goal (STG) pt will gain up to 5 degrees of DF bilaterally with knee extended. STG Duration 5 weeks Custodial Goal (LTG) pt will gain up to 10 degrees of DF bilaterally with knee extended so she can demonstrate heel strike during initial contact. LTG Duration 10 weeks FAAM Impairment pt scores 21 on FAAM (ADLs) Short Term Goal (STG) pt will score 30 or above on FAAM (ADLS) to improve her ankle mobility and strength for functional activities. STG Duration 5 weeks Roof Fitter Goal (LTG) pt will score 40 or above on FAAM (ADLS) to improve her ankle mobility and strength for functional activities. LTG Duration 10 weeks LEFS Impairment pt scores 24 on LEFS Short Term Goal (STG) pt will score 35 or above on LEFS to improve her quality of life STG Duration 5 weeks Roof Fitter Goal (LTG) pt will score 40 or above on LEFS to improve her quality of life LTG Duration 10 weeks Assessment Summary Assessment Pt did santana session very well. She has significant tightness at B calves and plantar fascia . Added calf and plantar fascia stretch, along with ankle DF and PF for HEP. Physical Therapy Plan Frequency and Duration Frequency of Treatment 2x/wk x2, 1x/wk x 4 Duration of Treatment 10 weeks Plan of Care Start Date 08/20/20 Plan of Care End Date 11/03/20 Next Visit Focus/Plan Next Note Type Treatment Note Next Visit Plan manual , STM on gastro calf stretch, big toe stretch toe curl, short foot
--- NOTE | 2020-08-27 15:13 | PT.OTN ---
Current Diagnoses Other acquired deformities of right foot (08/27/20) Other acquired deformities of unspecified foot (08/27/20) Plantar fascial fibromatosis (08/27/20) Physical Therapy Treatment Note PT-OP-A Visit Information Start: 08/20/20 15:04 Freq: Status: Active Protocol: Document 08/27/20 14:31 HH (Rec: 08/27/20 15:13 [id number]) Out-Patient Physical Therapy Visit Information Visit Information Visit Type Treatment Note Visit Start Time 15:18 Visit Stop Time 16:00 Total Visit Minutes 42 Visit Number 2/9 Number of HEAD OF SALES Visits 0 PT-OP-B Current Condition Start: 08/20/20 15:04 Freq: Status: Active Protocol: Document 08/20/20 15:04 HH (Rec: 08/20/20 15:15 [email or web address]) Current Condition History of Current Condition Onset Date 5-6 months ago Current Complaints B heel pain L worse than R, difficulty in walking and standing History of Current Condition Pt is a 60yo female here for chronic bilateral heel pain L worse than R. Her pain started getting worse since 5-6 months ago who started walking her dogs daily for 2-3 blocks each time. Her pain level is 9/10 on L and 7/10 on R. Pt went to see and dx with B plantar fasciatis. She c/o worse pain in the morning especially the first few steps after she gets up. Prolonged standing and walking also increase her pain. Pt stated that she is pretty much home bound at this point who does gorcery shop twice a week only d/t significant heel pain. Treatment Goals Patient/Caregiver Goals 1. To be pain free at both heels for standing and walking 2. To be able to walk her dog at outdoor in a daily basis Personal Factors Other Personal Factors That May Effect fibromyalgia Therapy/Recovery PT-OP-C Subjective Start: 08/20/20 15:04 Freq: Status: Active Protocol: Document 08/27/20 14:31 HH (Rec: 08/27/20 15:13 [id number]) OP-PT Subjective Patient Comments Patient Comments I was so sore after last time . PT-OP-D Balance Start: 08/20/20 15:04 Freq: Status: Active Protocol: Document 08/20/20 15:04 HH (Rec: 08/20/20 15:15 [email or web address]) Balance Tests Single Limb Standing Single Limb- Right 8 Single Limb- Left 5 PT-OP-F Manual Assessment Start: 08/20/20 15:04 Freq: Status: Active Protocol: Document 08/20/20 15:04 (Rec: 08/20/20 16:46 [email or web address]) Manual Assessments Soft Tissue Assessment Soft Tissue Mobility Assessment significant tenderness to pressure at (L worse than R) insertion of plantar fascia , gastro, achilles insertion bilaterally PT-OP-G Mobility & Gait Start: 08/20/20 15:04 Freq: Status: Active Protocol: Document 08/20/20 15:04 (Rec: 08/20/20 16:46 [email or web address]) OP Gait Assessment Gait Deviations General Gait Pattern Decreased Stride Length, Decreased Feet Clearance Factors Limiting Gait Function Factors Limiting Gait Function Decreased Activity Tolerance, Decreased Strength,Limited Range of Motion,Pain,Poor Balance Comments Gait Comments pt amb with flat foot gait = lack of heel strike and toe push off ( L worse with R) PT-OP-K Range of Motion Start: 08/20/20 15:04 Freq: Status: Active Protocol: Document 08/20/20 15:04 (Rec: 08/20/20 16:46 [email or web address]) Hip Goniometric Range of Motion Hip Right Passive Straight Leg Raise 70 Left Passive Straight Leg Raise 60 Ankle and Foot Goniometric Range of Motion Ankle and Foot Right Active Ankle/Foot ROM WFL No Testing Position Supine Dorsiflexion with Knee Flexed 0 Dorsiflexion with Knee Extended 13 Plantarflexion 40 Inversion 25 Comments B calf raises= 9 times (not full range d/t pain) Left Active Ankle/Foot ROM WFL No Testing Position Supine Dorsiflexion with Knee Flexed 7 Inversion 33 Eversion 23 Comments DF with knee extended = -4 into PF B calf raises= 9 times (not full range d/t pain) Toe Range of Motion Toe Left Great Toe Toe ROM WFL No MTP Flexion Active (degrees) 18 MTP Extension Active (degrees) 20 Right Great Toe Toe ROM WFL No MTP Flexion Active (degrees) 40 MTP Extension Active (degrees) 30 PT-OP-M Strength Start: 08/20/20 15:04 Freq: Status: Active Protocol: Document 08/20/20 15:04 (Rec: 08/20/20 16:46 [email or web address]) Hip Strength Hip Manual Muscle Testing Right Flexion (L2) 4- Good- Extension (S1) 4- Good- Abduction 3+ Fair+ Adduction 4 Good Left Flexion (L2) 4- Good- Extension (S1) 4- Good- Abduction 3+ Fair+ Adduction 4- Good- Knee Strength Knee Manual Muscle Testing Right Flexion (S2) 4 Good Extension (L3) 4+ Good+ Left Flexion (S2) 4 Good Extension (L3) 4+ Good+ Ankle/Foot Strength Ankle and Foot Manual Muscle Testing Right Dorsiflexion (L4) 4 Good Plantarflexion (S1) 3+ Fair+ Inversion 4- Good- Eversion (S1) 4- Good- Left Dorsiflexion (L4) 4- Good- Plantarflexion (S1) 3+ Fair+ Inversion 4- Good- Eversion (S1) 4- Good- PT-OP-Q Treatments Start: 08/20/20 15:04 Freq: Status: Active Protocol: Document 08/27/20 14:31 (Rec: 08/27/20 15:13 [id number]) Cardio Equipment Recumbent Bicycle Duration (Minutes) 8 Resistance 5 Therapeutic Exercises Supine Exercises passive DF stretch Side bilateral Reps/Minutes 10 sec x 5 Comments PT assisted Sitting Exercises bap board Side bilateral Equipment Used leve 3 Reps/Minutes clockwise and anticlockwise marble clam picker Side bilateral Reps/Minutes 5 mins towel scrunch Side bilateral Equipment Used towel Reps/Minutes 2 mins Comments pain at toes and arch ankle DF and PF Side bilateral Reps/Minutes 10 x2 Comments DF and PF plantar fascia stretch Side bilateral Comments for HEP Standing Exercises gastro stretch Standing Exercise Name staggered stance Side bilateral Reps/Minutes 10 sec hold x4 Comments cues for foot alignment Manual Therapy Treatment Soft Tissue Mobilization anterior tib Mobilization Type Sustained Pressure,Trigger Point Release Intensity/Depth Moderate Body Position Supine plantar fascia Mobilization Type Sustained Pressure,Trigger Point Release Intensity/Depth Moderate Body Position Supine gastro Body Location bilateral Mobilization Type Myofascial Release,Sustained Pressure,Trigger Point Release Intensity/Depth Moderate Body Position Prone Comments tenderness medial > lateral PT-OP-T Assessment and Plan Start: 08/20/20 15:04 Freq: Status: Active Protocol: Document 08/27/20 14:31 (Rec: 08/27/20 15:13 [id number]) Physical Therapy Assessment Goals return to walking Impairment unable to tolerate grocery shopping Short Term Goal (STG) pt will be able to complete grocery shopping at [facility] with pain no more than 5. STG Duration 5 weeks Cutting Machine Tender Decorative Goal (LTG) pt will be able to walk her dog daily for 3 blocks with pain no more than 3/10 LTG Duration 10 weeks ROM Impairment pt has very limited DF d/t calf tightness Short Term Goal (STG) pt will gain up to 5 degrees of DF bilaterally with knee extended. STG Duration 5 weeks Cutting Machine Tender Decorative Goal (LTG) pt will gain up to 10 degrees of DF bilaterally with knee extended so she can demonstrate heel strike during initial contact. LTG Duration 10 weeks FAAM Impairment pt scores 21 on FAAM (ADLs) Short Term Goal (STG) pt will score 30 or above on FAAM (ADLS) to improve her ankle mobility and strength for functional activities. STG Duration 5 weeks Jail Goal (LTG) pt will score 40 or above on FAAM (ADLS) to improve her ankle mobility and strength for functional activities. LTG Duration 10 weeks LEFS Impairment pt scores 24 on LEFS Short Term Goal (STG) pt will score 35 or above on LEFS to improve her quality of life STG Duration 5 weeks Cutting Machine Tender Decorative Goal (LTG) pt will score 40 or above on LEFS to improve her quality of life LTG Duration 10 weeks Assessment Summary Assessment Pt reports of soreness after last session. Cont to focus on stretching and intrinsic foot strengthening today. Pt santana session well and feel more mobile and less pain at the end of session. Educated pt to do stretches before sleeping and after she wake up Physical Therapy Plan Frequency and Duration Frequency of Treatment 2x/wk x2, 1x/wk x 4 Duration of Treatment 10 weeks Plan of Care Start Date 08/20/20 Plan of Care End Date 11/03/20 Next Visit Focus/Plan Next Note Type Treatment Note Next Visit Plan manual , STM on gastro calf stretch, big toe stretch toe curl, short foot
--- NOTE | 2020-08-29 15:14 | PT.OTN ---
Current Diagnoses Other acquired deformities of right foot (08/29/20) Other acquired deformities of unspecified foot (08/29/20) Plantar fascial fibromatosis (08/29/20) Physical Therapy Treatment Note PT-OP-A Visit Information Start: 08/20/20 15:04 Freq: Status: Active Protocol: Document 08/29/20 14:31 HH (Rec: 08/29/20 15:14 HH [id number]) Out-Patient Physical Therapy Visit Information Visit Information Visit Type Treatment Note Visit Start Time 14:32 Visit Stop Time 15:15 Total Visit Minutes 43 Visit Number 3/9 Number of PARCEL POST CLERK Visits 0 PT-OP-B Current Condition Start: 08/20/20 15:04 Freq: Status: Active Protocol: Document 08/20/20 15:04 HH (Rec: 08/20/20 15:15 [email or web address]) Current Condition History of Current Condition Onset Date 5-6 months ago Current Complaints B heel pain L worse than R, difficulty in walking and standing History of Current Condition Pt is a 60yo female here for chronic bilateral heel pain L worse than R. Her pain started getting worse since 5-6 months ago who started walking her dogs daily for 2-3 blocks each time. Her pain level is 9/10 on L and 7/10 on R. Pt went to see and dx with B plantar fasciatis. She c/o worse pain in the morning especially the first few steps after she gets up. Prolonged standing and walking also increase her pain. Pt stated that she is pretty much home bound at this point who does gorcery shop twice a week only d/t significant heel pain. Treatment Goals Patient/Caregiver Goals 1. To be pain free at both heels for standing and walking 2. To be able to walk her dog at outdoor in a daily basis Personal Factors Other Personal Factors That May Effect fibromyalgia Therapy/Recovery PT-OP-C Subjective Start: 08/20/20 15:04 Freq: Status: Active Protocol: Document 08/29/20 14:31 HH (Rec: 08/29/20 15:14 HH [id number]) OP-PT Subjective Patient Comments Patient Comments I noticed my pain in the morning has been a bit less but still sore after walking/ standing for awhile Patient Reported Progress Improving PT-OP-D Balance Start: 08/20/20 15:04 Freq: Status: Active Protocol: Document 08/20/20 15:04 HH (Rec: 08/20/20 15:15 HH [email or web address]) Balance Tests Single Limb Standing Single Limb- Right 8 Single Limb- Left 5 PT-OP-F Manual Assessment Start: 08/20/20 15:04 Freq: Status: Active Protocol: Document 08/20/20 15:04 HH (Rec: 08/20/20 16:46 HH [email or web address]) Manual Assessments Soft Tissue Assessment Soft Tissue Mobility Assessment significant tenderness to pressure at (L worse than R) insertion of plantar fascia , gastro, achilles insertion bilaterally PT-OP-G Mobility & Gait Start: 08/20/20 15:04 Freq: Status: Active Protocol: Document 08/20/20 15:04 HH (Rec: 08/20/20 16:46 [email or web address]) OP Gait Assessment Gait Deviations General Gait Pattern Decreased Stride Length, Decreased Feet Clearance Factors Limiting Gait Function Factors Limiting Gait Function Decreased Activity Tolerance, Decreased Strength,Limited Range of Motion,Pain,Poor Balance Comments Gait Comments pt amb with flat foot gait = lack of heel strike and toe push off ( L worse with R) PT-OP-K Range of Motion Start: 08/20/20 15:04 Freq: Status: Active Protocol: Document 08/20/20 15:04 HH (Rec: 08/20/20 16:46 [email or web address]) Hip Goniometric Range of Motion Hip Right Passive Straight Leg Raise 70 Left Passive Straight Leg Raise 60 Ankle and Foot Goniometric Range of Motion Ankle and Foot Right Active Ankle/Foot ROM WFL No Testing Position Supine Dorsiflexion with Knee Flexed 0 Dorsiflexion with Knee Extended 13 Plantarflexion 40 Inversion 25 Comments B calf raises= 9 times (not full range d/t pain) Left Active Ankle/Foot ROM WFL No Testing Position Supine Dorsiflexion with Knee Flexed 7 Inversion 33 Eversion 23 Comments DF with knee extended = -4 into PF B calf raises= 9 times (not full range d/t pain) Toe Range of Motion Toe Left Great Toe Toe ROM WFL No MTP Flexion Active (degrees) 18 MTP Extension Active (degrees) 20 Right Great Toe Toe ROM WFL No MTP Flexion Active (degrees) 40 MTP Extension Active (degrees) 30 PT-OP-M Strength Start: 08/20/20 15:04 Freq: Status: Active Protocol: Document 08/20/20 15:04 (Rec: 08/20/20 16:46 [email or web address]) Hip Strength Hip Manual Muscle Testing Right Flexion (L2) 4- Good- Extension (S1) 4- Good- Abduction 3+ Fair+ Adduction 4 Good Left Flexion (L2) 4- Good- Extension (S1) 4- Good- Abduction 3+ Fair+ Adduction 4- Good- Knee Strength Knee Manual Muscle Testing Right Flexion (S2) 4 Good Extension (L3) 4+ Good+ Left Flexion (S2) 4 Good Extension (L3) 4+ Good+ Ankle/Foot Strength Ankle and Foot Manual Muscle Testing Right Dorsiflexion (L4) 4 Good Plantarflexion (S1) 3+ Fair+ Inversion 4- Good- Eversion (S1) 4- Good- Left Dorsiflexion (L4) 4- Good- Plantarflexion (S1) 3+ Fair+ Inversion 4- Good- Eversion (S1) 4- Good- PT-OP-Q Treatments Start: 08/20/20 15:04 Freq: Status: Active Protocol: Document 08/29/20 14:31 (Rec: 08/29/20 15:14 [id number]) Cardio Equipment Bicycle (Upright) Duration (Minutes) 5 Resistance 5 Therapeutic Exercises Supine Exercises passive DF stretch Side bilateral Reps/Minutes 10 sec x 5 Comments PT assisted Sitting Exercises marble continuous pickling line pickler Side bilateral Reps/Minutes 5 mins towel scrunch Side bilateral Equipment Used towel Reps/Minutes 2 mins Comments pain at toes and arch ankle DF and PF Side bilateral Reps/Minutes 10 x2 Comments DF and PF Standing Exercises ankle board Side bilateral Reps/Minutes 10 x2 Comments for ankle DF and PF calf raises Side bilateral Equipment Used stair Reps/Minutes 8x2 Comments slight pain at L MTPs gastro stretch Standing Exercise Name staggered stance Side bilateral Reps/Minutes 10 sec hold x4 Comments cues for foot alignment Manual Therapy Treatment Soft Tissue Mobilization anterior tib Mobilization Type Sustained Pressure,Trigger Point Release Intensity/Depth Moderate Body Position Supine plantar fascia Mobilization Type Sustained Pressure,Trigger Point Release Intensity/Depth Moderate Body Position Supine gastro Body Location bilateral Mobilization Type Myofascial Release,Sustained Pressure,Trigger Point Release Intensity/Depth Moderate Body Position Prone Comments tenderness medial > lateral PT-OP-T Assessment and Plan Start: 12/01/20 15:04 Freq: Status: Active Protocol: Document 08/29/20 14:31 HH (Rec: 08/29/20 15:14 HH [id number]) Physical Therapy Assessment Goals return to walking Impairment unable to tolerate grocery shopping Short Term Goal (STG) pt will be able to complete grocery shopping at [facility] with pain no more than 5. STG Duration 5 weeks [facility] Goal (LTG) pt will be able to walk her dog daily for 3 blocks with pain no more than 3/10 LTG Duration 10 weeks ROM Impairment pt has very limited DF d/t calf tightness Short Term Goal (STG) pt will gain up to 5 degrees of DF bilaterally with knee extended. STG Duration 5 weeks [facility] Goal (LTG) pt will gain up to 10 degrees of DF bilaterally with knee extended so she can demonstrate heel strike during initial contact. LTG Duration 10 weeks FAAM Impairment pt scores 21 on FAAM (ADLs) Short Term Goal (STG) pt will score 30 or above on FAAM (ADLS) to improve her ankle mobility and strength for functional activities. STG Duration 5 weeks Park Ranger Goal (LTG) pt will score 40 or above on FAAM (ADLS) to improve her ankle mobility and strength for functional activities. LTG Duration 10 weeks Assessment Summary Assessment Pt stated her morning pain has been reduced with the help of HEP. Pt santana session well today. Physical Therapy Plan Frequency and Duration Frequency of Treatment 2x/wk x2, 1x/wk x 4 Duration of Treatment 10 weeks Plan of Care Start Date 08/20/20 Plan of Care End Date 11/03/20 Next Visit Focus/Plan Next Note Type Treatment Note Next Visit Plan manual , STM on gastro calf stretch, big toe stretch toe curl, short foot
--- NOTE | 2020-09-05 10:30 | PT.OTN ---
Current Diagnoses Other acquired deformities of right foot (09/05/20) Other acquired deformities of unspecified foot (09/05/20) Plantar fascial fibromatosis (09/05/20) Physical Therapy Treatment Note PT-OP-A Visit Information Start: 08/20/20 15:04 Freq: Status: Active Protocol: Document 09/05/20 09:47 HH (Rec: 09/05/20 10:30 [id number]) Out-Patient Physical Therapy Visit Information Visit Information Visit Type Treatment Note Visit Start Time 09:46 Visit Stop Time 10:30 Total Visit Minutes 44 Visit Number 4/9 Number of EXCEPTIONAL STUDENT EDUCATION TEACHER Visits 0 PT-OP-B Current Condition Start: 08/20/20 15:04 Freq: Status: Active Protocol: Document 08/20/20 15:04 HH (Rec: 08/20/20 15:15 [email or web address]) Current Condition History of Current Condition Onset Date 5-6 months ago Current Complaints B heel pain L worse than R, difficulty in walking and standing History of Current Condition Pt is a 60yo female here for chronic bilateral heel pain L worse than R. Her pain started getting worse since 5-6 months ago who started walking her dogs daily for 2-3 blocks each time. Her pain level is 9/10 on L and 7/10 on R. Pt went to see and dx with B plantar fasciatis. She c/o worse pain in the morning especially the first few steps after she gets up. Prolonged standing and walking also increase her pain. Pt stated that she is pretty much home bound at this point who does gorcery shop twice a week only d/t significant heel pain. Treatment Goals Patient/Caregiver Goals 1. To be pain free at both heels for standing and walking 2. To be able to walk her dog at outdoor in a daily basis Personal Factors Other Personal Factors That May Effect fibromyalgia Therapy/Recovery PT-OP-C Subjective Start: 08/20/20 15:04 Freq: Status: Active Protocol: Document 09/05/20 09:47 HH (Rec: 09/05/20 10:30 [id number]) OP-PT Subjective Patient Comments Patient Comments Its getting better. My morning is a lot better now. Going up and down stairs consistently does bother me. My pain is half now and able to walk with big steps now. Patient Reported Progress Improving PT-OP-D Balance Start: 08/20/20 15:04 Freq: Status: Active Protocol: Document 08/20/20 15:04 HH (Rec: 08/20/20 15:15 [email or web address]) Balance Tests Single Limb Standing Single Limb- Right 8 Single Limb- Left 5 PT-OP-F Manual Assessment Start: 08/20/20 15:04 Freq: Status: Active Protocol: Document 08/20/20 15:04 HH (Rec: 08/20/20 16:46 [email or web address]) Manual Assessments Soft Tissue Assessment Soft Tissue Mobility Assessment significant tenderness to pressure at (L worse than R) insertion of plantar fascia , gastro, achilles insertion bilaterally PT-OP-G Mobility & Gait Start: 08/20/20 15:04 Freq: Status: Active Protocol: Document 08/20/20 15:04 HH (Rec: 08/20/20 16:46 [email or web address]) OP Gait Assessment Gait Deviations General Gait Pattern Decreased Stride Length, Decreased Feet Clearance Factors Limiting Gait Function Factors Limiting Gait Function Decreased Activity Tolerance, Decreased Strength,Limited Range of Motion,Pain,Poor Balance Comments Gait Comments pt amb with flat foot gait = lack of heel strike and toe push off ( L worse with R) PT-OP-K Range of Motion Start: 08/20/20 15:04 Freq: Status: Active Protocol: Document 08/20/20 15:04 (Rec: 08/20/20 16:46 [email or web address]) Hip Goniometric Range of Motion Hip Right Passive Straight Leg Raise 70 Left Passive Straight Leg Raise 60 Ankle and Foot Goniometric Range of Motion Ankle and Foot Right Active Ankle/Foot ROM WFL No Testing Position Supine Dorsiflexion with Knee Flexed 0 Dorsiflexion with Knee Extended 13 Plantarflexion 40 Inversion 25 Comments B calf raises= 9 times (not full range d/t pain) Left Active Ankle/Foot ROM WFL No Testing Position Supine Dorsiflexion with Knee Flexed 7 Inversion 33 Eversion 23 Comments DF with knee extended = -4 into PF B calf raises= 9 times (not full range d/t pain) Toe Range of Motion Toe Left Great Toe Toe ROM WFL No MTP Flexion Active (degrees) 18 MTP Extension Active (degrees) 20 Right Great Toe Toe ROM WFL No MTP Flexion Active (degrees) 40 MTP Extension Active (degrees) 30 PT-OP-M Strength Start: 08/20/20 15:04 Freq: Status: Active Protocol: Document 08/20/20 15:04 HH (Rec: 08/20/20 16:46 [email or web address]) Hip Strength Hip Manual Muscle Testing Right Flexion (L2) 4- Good- Extension (S1) 4- Good- Abduction 3+ Fair+ Adduction 4 Good Left Flexion (L2) 4- Good- Extension (S1) 4- Good- Abduction 3+ Fair+ Adduction 4- Good- Knee Strength Knee Manual Muscle Testing Right Flexion (S2) 4 Good Extension (L3) 4+ Good+ Left Flexion (S2) 4 Good Extension (L3) 4+ Good+ Ankle/Foot Strength Ankle and Foot Manual Muscle Testing Right Dorsiflexion (L4) 4 Good Plantarflexion (S1) 3+ Fair+ Inversion 4- Good- Eversion (S1) 4- Good- Left Dorsiflexion (L4) 4- Good- Plantarflexion (S1) 3+ Fair+ Inversion 4- Good- Eversion (S1) 4- Good- PT-OP-Q Treatments Start: 08/20/20 15:04 Freq: Status: Active Protocol: Document 09/05/20 09:47 (Rec: 09/05/20 10:30 [id number]) Cardio Equipment Bicycle (Upright) Duration (Minutes) 5 Resistance 5 Therapeutic Exercises Sitting Exercises marble poultry picker Side bilateral Reps/Minutes 5 mins towel scrunch Side bilateral Equipment Used towel Reps/Minutes 2 mins Comments pain at toes and arch Standing Exercises balance discs Side bilateral Reps/Minutes 4 mins Comments static then stagger ankle board Side bilateral Reps/Minutes 10 x2 Comments for ankle DF and PF calf raises Side bilateral Equipment Used stair Reps/Minutes 8x2 Comments slight pain at L MTPs, able to reach full range gastro stretch Standing Exercise Name staggered stance Side bilateral Reps/Minutes 10 sec hold x4 Comments cues for foot alignment Manual Therapy Treatment Soft Tissue Mobilization anterior tib Mobilization Type Sustained Pressure,Trigger Point Release Intensity/Depth Moderate Body Position Supine plantar fascia Mobilization Type Sustained Pressure,Trigger Point Release Intensity/Depth Moderate Body Position Supine gastro Body Location bilateral Mobilization Type Myofascial Release,Sustained Pressure,Trigger Point Release Intensity/Depth Moderate Body Position Prone Comments tenderness medial > lateral PT-OP-T Assessment and Plan Start: 08/20/20 15:04 Freq: Status: Active Protocol: Document 09/05/20 09:47 HH (Rec: 09/05/20 10:30 HH [id number]) Physical Therapy Assessment Goals return to walking Impairment unable to tolerate grocery shopping Short Term Goal (STG) pt will be able to complete grocery shopping at [facility] with pain no more than 5. STG Duration 5 weeks Manager [employer] Goal (LTG) pt will be able to walk her dog daily for 3 blocks with pain no more than 3/10 LTG Duration 10 weeks ROM Impairment pt has very limited DF d/t calf tightness Short Term Goal (STG) pt will gain up to 5 degrees of DF bilaterally with knee extended. STG Duration 5 weeks [facility] Goal (LTG) pt will gain up to 10 degrees of DF bilaterally with knee extended so she can demonstrate heel strike during initial contact. LTG Duration 10 weeks FAAM Impairment pt scores 21 on FAAM (ADLs) Short Term Goal (STG) pt will score 30 or above on FAAM (ADLS) to improve her ankle mobility and strength for functional activities. STG Duration 5 weeks [facility] Goal (LTG) pt will score 40 or above on FAAM (ADLS) to improve her ankle mobility and strength for functional activities. LTG Duration 10 weeks LEFS Impairment pt scores 24 on LEFS Short Term Goal (STG) pt will score 35 or above on LEFS to improve her quality of life STG Duration 5 weeks [employer] Goal (LTG) pt will score 40 or above on LEFS to improve her quality of life LTG Duration 10 weeks Assessment Summary Assessment pt progress well and reports with half of the pain since evaluation. Added dynamic balance exercises today and pt santana well. Will cont focus on balancing and strengthening ex . Physical Therapy Plan Frequency and Duration Frequency of Treatment 2x/wk x2, 1x/wk x 4 Duration of Treatment 10 weeks Plan of Care Start Date 08/20/20 Plan of Care End Date 11/03/20 Next Visit Focus/Plan Next Note Type Treatment Note Next Visit Plan manual , STM on gastro calf stretch, big toe stretch toe curl, short foot
--- NOTE | 2020-09-10 16:20 | PT.OTN ---
Current Diagnoses Other acquired deformities of right foot (09/10/20) Other acquired deformities of unspecified foot (09/10/20) Plantar fascial fibromatosis (09/10/20) Physical Therapy Treatment Note PT-OP-A Visit Information Start: 08/20/20 15:04 Freq: Status: Active Protocol: Document 09/10/20 14:40 HH (Rec: 09/10/20 16:20 HH [id number]) Out-Patient Physical Therapy Visit Information Visit Information Visit Type Treatment Note Visit Start Time 14:38 Visit Stop Time 15:15 Total Visit Minutes 42 Visit Number 5/9 Number of SUPERVISOR BENZENE REFINING Visits 0 PT-OP-B Current Condition Start: 08/20/20 15:04 Freq: Status: Active Protocol: Document 08/20/20 15:04 HH (Rec: 08/20/20 15:15 HH [email or web address]) Current Condition History of Current Condition Onset Date 5-6 months ago Current Complaints B heel pain L worse than R, difficulty in walking and standing History of Current Condition Pt is a 60yo female here for chronic bilateral heel pain L worse than R. Her pain started getting worse since 5-6 months ago who started walking her dogs daily for 2-3 blocks each time. Her pain level is 9/10 on L and 7/10 on R. Pt went to see and dx with B plantar fasciatis. She c/o worse pain in the morning especially the first few steps after she gets up. Prolonged standing and walking also increase her pain. Pt stated that she is pretty much home bound at this point who does gorcery shop twice a week only d/t significant heel pain. Treatment Goals Patient/Caregiver Goals 1. To be pain free at both heels for standing and walking 2. To be able to walk her dog at outdoor in a daily basis Personal Factors Other Personal Factors That May Effect fibromyalgia Therapy/Recovery PT-OP-C Subjective Start: 08/20/20 15:04 Freq: Status: Active Protocol: Document 09/10/20 14:40 HH (Rec: 09/10/20 16:20 HH [id number]) OP-PT Subjective Patient Comments Patient Comments My morning is okay so far. But i was very sore for the next 3 days after my last treatment. But im okay now. My R foot only has 2/10 pain, but L side at 8 at worst and 4 /10 when its good. Patient Reported Progress Same PT-OP-D Balance Start: 08/20/20 15:04 Freq: Status: Active Protocol: Document 08/20/20 15:04 (Rec: 08/20/20 15:15 [email or web address]) Balance Tests Single Limb Standing Single Limb- Right 8 Single Limb- Left 5 PT-OP-F Manual Assessment Start: 08/20/20 15:04 Freq: Status: Active Protocol: Document 08/20/20 15:04 (Rec: 08/20/20 16:46 [email or web address]) Manual Assessments Soft Tissue Assessment Soft Tissue Mobility Assessment significant tenderness to pressure at (L worse than R) insertion of plantar fascia , gastro, achilles insertion bilaterally PT-OP-G Mobility & Gait Start: 08/20/20 15:04 Freq: Status: Active Protocol: Document 08/20/20 15:04 (Rec: 08/20/20 16:46 [email or web address]) OP Gait Assessment Gait Deviations General Gait Pattern Decreased Stride Length, Decreased Feet Clearance Factors Limiting Gait Function Factors Limiting Gait Function Decreased Activity Tolerance, Decreased Strength,Limited Range of Motion,Pain,Poor Balance Comments Gait Comments pt amb with flat foot gait = lack of heel strike and toe push off ( L worse with R) PT-OP-K Range of Motion Start: 08/20/20 15:04 Freq: Status: Active Protocol: Document 08/20/20 15:04 (Rec: 08/20/20 16:46 [email or web address]) Hip Goniometric Range of Motion Hip Right Passive Straight Leg Raise 70 Left Passive Straight Leg Raise 60 Ankle and Foot Goniometric Range of Motion Ankle and Foot Right Active Ankle/Foot ROM WFL No Testing Position Supine Dorsiflexion with Knee Flexed 0 Dorsiflexion with Knee Extended 13 Plantarflexion 40 Inversion 25 Comments B calf raises= 9 times (not full range d/t pain) Left Active Ankle/Foot ROM WFL No Testing Position Supine Dorsiflexion with Knee Flexed 7 Inversion 33 Eversion 23 Comments DF with knee extended = -4 into PF B calf raises= 9 times (not full range d/t pain) Toe Range of Motion Toe Left Great Toe Toe ROM WFL No MTP Flexion Active (degrees) 18 MTP Extension Active (degrees) 20 Right Great Toe Toe ROM WFL No MTP Flexion Active (degrees) 40 MTP Extension Active (degrees) 30 PT-OP-M Strength Start: 08/20/20 15:04 Freq: Status: Active Protocol: Document 08/20/20 15:04 (Rec: 08/20/20 16:46 [email or web address]) Hip Strength Hip Manual Muscle Testing Right Flexion (L2) 4- Good- Extension (S1) 4- Good- Abduction 3+ Fair+ Adduction 4 Good Left Flexion (L2) 4- Good- Extension (S1) 4- Good- Abduction 3+ Fair+ Adduction 4- Good- Knee Strength Knee Manual Muscle Testing Right Flexion (S2) 4 Good Extension (L3) 4+ Good+ Left Flexion (S2) 4 Good Extension (L3) 4+ Good+ Ankle/Foot Strength Ankle and Foot Manual Muscle Testing Right Dorsiflexion (L4) 4 Good Plantarflexion (S1) 3+ Fair+ Inversion 4- Good- Eversion (S1) 4- Good- Left Dorsiflexion (L4) 4- Good- Plantarflexion (S1) 3+ Fair+ Inversion 4- Good- Eversion (S1) 4- Good- PT-OP-Q Treatments Start: 08/20/20 15:04 Freq: Status: Active Protocol: Document 09/10/20 14:40 (Rec: 09/10/20 16:20 [id number]) Cardio Equipment Bicycle (Upright) Duration (Minutes) 5 Resistance 5 Therapeutic Exercises Supine Exercises figure 4 Side bilateral Reps/Minutes 15 sec x 5 hamstring stretch Side bilateral Reps/Minutes 15 sec x 5 Comments 70 degrees on L, 90 on R DF Side bilateral Equipment Used yellow band Reps/Minutes 10 x2 passive DF stretch Side bilateral Reps/Minutes 10 sec x 5 Comments PT assisted Sitting Exercises marble oyster picker Side bilateral Reps/Minutes 5 mins towel scrunch Side bilateral Equipment Used towel Reps/Minutes 2 mins Comments pain at toes and arch Standing Exercises gastro stretch Standing Exercise Name staggered stance Side bilateral Reps/Minutes 10 sec hold x4 Comments cues for foot alignment Manual Therapy Treatment Soft Tissue Mobilization anterior tib Mobilization Type Sustained Pressure,Trigger Point Release Intensity/Depth Moderate Body Position Supine plantar fascia Mobilization Type Sustained Pressure,Trigger Point Release Intensity/Depth Moderate Body Position Supine gastro Body Location bilateral Mobilization Type Myofascial Release,Sustained Pressure,Trigger Point Release Intensity/Depth Moderate Body Position Prone Comments tenderness medial > lateral PT-OP-T Assessment and Plan Start: 08/20/20 15:04 Freq: Status: Active Protocol: Document 09/10/20 14:40 HH (Rec: 09/10/20 16:20 HH [id number]) Physical Therapy Assessment Goals return to walking Impairment unable to tolerate grocery shopping Short Term Goal (STG) pt will be able to complete grocery shopping at [facility] with pain no more than 5. STG Duration 5 weeks Snf Goal (LTG) pt will be able to walk her dog daily for 3 blocks with pain no more than 3/10 LTG Duration 10 weeks ROM Impairment pt has very limited DF d/t calf tightness Short Term Goal (STG) pt will gain up to 5 degrees of DF bilaterally with knee extended. STG Duration 5 weeks Snf Goal (LTG) pt will gain up to 10 degrees of DF bilaterally with knee extended so she can demonstrate heel strike during initial contact. LTG Duration 10 weeks FAAM Impairment pt scores 21 on FAAM (ADLs) Short Term Goal (STG) pt will score 30 or above on FAAM (ADLS) to improve her ankle mobility and strength for functional activities. STG Duration 5 weeks Snf Goal (LTG) pt will score 40 or above on FAAM (ADLS) to improve her ankle mobility and strength for functional activities. LTG Duration 10 weeks LEFS Impairment pt scores 24 on LEFS Short Term Goal (STG) pt will score 35 or above on LEFS to improve her quality of life STG Duration 5 weeks Jewelry Designer Goal (LTG) pt will score 40 or above on LEFS to improve her quality of life LTG Duration 10 weeks Assessment Summary Assessment Pt has a setback since last visit after standing calf raises and dynamic balance on balance discs. Reduced strengthening ex today and focused on foot intrinsic strengthening and stretching today. Physical Therapy Plan Frequency and Duration Frequency of Treatment 2x/wk x2, 1x/wk x 4 Duration of Treatment 10 weeks Plan of Care Start Date 08/20/20 Plan of Care End Date 11/03/20 Next Visit Focus/Plan Next Note Type Treatment Note Next Visit Plan manual , STM on gastro calf stretch, big toe stretch toe curl, short foot
--- NOTE | 2020-09-16 13:41 | PT.OTN ---
Current Diagnoses Other acquired deformities of right foot (09/16/20) Other acquired deformities of unspecified foot (09/16/20) Plantar fascial fibromatosis (09/16/20) Physical Therapy Treatment Note PT-OP-A Visit Information Start: 08/20/20 15:04 Freq: Status: Active Protocol: Document 09/16/20 13:04 HH (Rec: 09/16/20 13:41 [id number]) Out-Patient Physical Therapy Visit Information Visit Information Visit Type Treatment Note Visit Start Time 13:03 Visit Stop Time 13:45 Total Visit Minutes 42 Visit Number 6/9 Number of CUSHION MAT MAKER Visits 0 PT-OP-B Current Condition Start: 08/20/20 15:04 Freq: Status: Active Protocol: Document 08/20/20 15:04 HH (Rec: 08/20/20 15:15 [email or web address]) Current Condition History of Current Condition Onset Date 5-6 months ago Current Complaints B heel pain L worse than R, difficulty in walking and standing History of Current Condition Pt is a 60yo female here for chronic bilateral heel pain L worse than R. Her pain started getting worse since 5-6 months ago who started walking her dogs daily for 2-3 blocks each time. Her pain level is 9/10 on L and 7/10 on R. Pt went to see and dx with B plantar fasciatis. She c/o worse pain in the morning especially the first few steps after she gets up. Prolonged standing and walking also increase her pain. Pt stated that she is pretty much home bound at this point who does gorcery shop twice a week only d/t significant heel pain. Treatment Goals Patient/Caregiver Goals 1. To be pain free at both heels for standing and walking 2. To be able to walk her dog at outdoor in a daily basis Personal Factors Other Personal Factors That May Effect fibromyalgia Therapy/Recovery PT-OP-C Subjective Start: 08/20/20 15:04 Freq: Status: Active Protocol: Document 09/16/20 13:04 HH (Rec: 09/16/20 13:41 [id number]) OP-PT Subjective Patient Comments Patient Comments My morning is doing okay. I didnt get sore from last session. Patient Reported Progress Improving PT-OP-D Balance Start: 08/20/20 15:04 Freq: Status: Active Protocol: Document 08/20/20 15:04 HH (Rec: 08/20/20 15:15 [email or web address]) Balance Tests Single Limb Standing Single Limb- Right 8 Single Limb- Left 5 PT-OP-F Manual Assessment Start: 08/20/20 15:04 Freq: Status: Active Protocol: Document 08/20/20 15:04 HH (Rec: 08/20/20 16:46 [email or web address]) Manual Assessments Soft Tissue Assessment Soft Tissue Mobility Assessment significant tenderness to pressure at (L worse than R) insertion of plantar fascia , gastro, achilles insertion bilaterally PT-OP-G Mobility & Gait Start: 08/20/20 15:04 Freq: Status: Active Protocol: Document 08/20/20 15:04 HH (Rec: 08/20/20 16:46 [email or web address]) OP Gait Assessment Gait Deviations General Gait Pattern Decreased Stride Length, Decreased Feet Clearance Factors Limiting Gait Function Factors Limiting Gait Function Decreased Activity Tolerance, Decreased Strength,Limited Range of Motion,Pain,Poor Balance Comments Gait Comments pt amb with flat foot gait = lack of heel strike and toe push off ( L worse with R) PT-OP-K Range of Motion Start: 08/20/20 15:04 Freq: Status: Active Protocol: Document 08/20/20 15:04 HH (Rec: 08/20/20 16:46 [email or web address]) Hip Goniometric Range of Motion Hip Right Passive Straight Leg Raise 70 Left Passive Straight Leg Raise 60 Ankle and Foot Goniometric Range of Motion Ankle and Foot Right Active Ankle/Foot ROM WFL No Testing Position Supine Dorsiflexion with Knee Flexed 0 Dorsiflexion with Knee Extended 13 Plantarflexion 40 Inversion 25 Comments B calf raises= 9 times (not full range d/t pain) Left Active Ankle/Foot ROM WFL No Testing Position Supine Dorsiflexion with Knee Flexed 7 Inversion 33 Eversion 23 Comments DF with knee extended = -4 into PF B calf raises= 9 times (not full range d/t pain) Toe Range of Motion Toe Left Great Toe Toe ROM WFL No MTP Flexion Active (degrees) 18 MTP Extension Active (degrees) 20 Right Great Toe Toe ROM WFL No MTP Flexion Active (degrees) 40 MTP Extension Active (degrees) 30 PT-OP-M Strength Start: 08/20/20 15:04 Freq: Status: Active Protocol: Document 08/20/20 15:04 (Rec: 08/20/20 16:46 [email or web address]) Hip Strength Hip Manual Muscle Testing Right Flexion (L2) 4- Good- Extension (S1) 4- Good- Abduction 3+ Fair+ Adduction 4 Good Left Flexion (L2) 4- Good- Extension (S1) 4- Good- Abduction 3+ Fair+ Adduction 4- Good- Knee Strength Knee Manual Muscle Testing Right Flexion (S2) 4 Good Extension (L3) 4+ Good+ Left Flexion (S2) 4 Good Extension (L3) 4+ Good+ Ankle/Foot Strength Ankle and Foot Manual Muscle Testing Right Dorsiflexion (L4) 4 Good Plantarflexion (S1) 3+ Fair+ Inversion 4- Good- Eversion (S1) 4- Good- Left Dorsiflexion (L4) 4- Good- Plantarflexion (S1) 3+ Fair+ Inversion 4- Good- Eversion (S1) 4- Good- PT-OP-Q Treatments Start: 08/20/20 15:04 Freq: Status: Active Protocol: Document 09/16/20 13:04 (Rec: 09/16/20 13:41 [id number]) Cardio Equipment Bicycle (Upright) Duration (Minutes) 5 Resistance 5 Gym Equipment Shuttle Recovery calf raises Resistance 25# Shuttle Recovery Platform Stable Reps/Time 10 x3 Therapeutic Exercises Sitting Exercises marble waste picker Side bilateral Reps/Minutes 5 mins Standing Exercises weight shift Standing Exercise Name ankle rocking Side bilateral Reps/Minutes 20 sec each x 2 ankle board Side bilateral Reps/Minutes 10 x2 Comments for ankle DF and PF calf raises Side bilateral Equipment Used stair Reps/Minutes 8x2 Comments slight pain at L MTPs, able to reach full range gastro stretch Standing Exercise Name staggered stance Side bilateral Reps/Minutes 10 sec hold x4 Comments cues for foot alignment Manual Therapy Treatment Soft Tissue Mobilization plantar fascia Mobilization Type Sustained Pressure,Trigger Point Release Intensity/Depth Moderate Body Position Supine gastro Body Location bilateral Mobilization Type Myofascial Release,Sustained Pressure,Trigger Point Release Intensity/Depth Moderate Body Position Prone Comments tenderness medial > lateral PT-OP-T Assessment and Plan Start: 08/20/20 15:04 Freq: Status: Active Protocol: Document 09/16/20 13:04 (Rec: 09/16/20 13:41 [id number]) Physical Therapy Assessment Goals return to walking Impairment unable to tolerate grocery shopping Short Term Goal (STG) pt will be able to complete grocery shopping at [facility] with pain no more than 5. STG Duration 5 weeks Longterm Goal (LTG) pt will be able to walk her dog daily for 3 blocks with pain no more than 3/10 LTG Duration 10 weeks ROM Impairment pt has very limited DF d/t calf tightness Short Term Goal (STG) pt will gain up to 5 degrees of DF bilaterally with knee extended. STG Duration 5 weeks Longterm Goal (LTG) pt will gain up to 10 degrees of DF bilaterally with knee extended so she can demonstrate heel strike during initial contact. LTG Duration 10 weeks FAAM Impairment pt scores 21 on FAAM (ADLs) Short Term Goal (STG) pt will score 30 or above on FAAM (ADLS) to improve her ankle mobility and strength for functional activities. STG Duration 5 weeks Rug Cleaner Goal (LTG) pt will score 40 or above on FAAM (ADLS) to improve her ankle mobility and strength for functional activities. LTG Duration 10 weeks LEFS Impairment pt scores 24 on LEFS Short Term Goal (STG) pt will score 35 or above on LEFS to improve her quality of life STG Duration 5 weeks Rug Cleaner Goal (LTG) pt will score 40 or above on LEFS to improve her quality of life LTG Duration 10 weeks Assessment Summary Assessment Pt symptoms has improved from 2 weeks ago. Pain at R =1-2/10 , L= 4-5/10. Pt santana session well today with mostly ROM and strengthening ex. Replaced standing calf raises with supine calf raises. Physical Therapy Plan Frequency and Duration Frequency of Treatment 2x/wk x2, 1x/wk x 4 Duration of Treatment 10 weeks Plan of Care Start Date 08/20/20 Plan of Care End Date 11/03/20 Next Visit Focus/Plan Next Note Type Treatment Note Next Visit Plan manual , STM on gastro calf stretch, big toe stretch toe curl, short foot
--- NOTE | 2020-09-19 14:34 | PT.OTN ---
Current Diagnoses Other acquired deformities of right foot (09/19/20) Other acquired deformities of unspecified foot (09/19/20) Plantar fascial fibromatosis (09/19/20) Physical Therapy Treatment Note PT-OP-A Visit Information Start: 08/20/20 15:04 Freq: Status: Active Protocol: Document 09/19/20 14:08 MA (Rec: 09/19/20 14:29 MA [id number]) Out-Patient Physical Therapy Visit Information Visit Information Visit Type Treatment Note Visit Start Time 13:44 Visit Stop Time 14:32 Total Visit Minutes 48 Visit Number 7/9 Number of SPOT CLEANER Visits 1 Precautions Precautions Fibromyalgia PT-OP-B Current Condition Start: 08/20/20 15:04 Freq: Status: Active Protocol: Document 08/20/20 15:04 HH (Rec: 08/20/20 15:15 HH [email or web address]) Current Condition History of Current Condition Onset Date 5-6 months ago Current Complaints B heel pain L worse than R, difficulty in walking and standing History of Current Condition Pt is a 60yo female here for chronic bilateral heel pain L worse than R. Her pain started getting worse since 5-6 months ago who started walking her dogs daily for 2-3 blocks each time. Her pain level is 9/10 on L and 7/10 on R. Pt went to see and dx with B plantar fasciatis. She c/o worse pain in the morning especially the first few steps after she gets up. Prolonged standing and walking also increase her pain. Pt stated that she is pretty much home bound at this point who does gorcery shop twice a week only d/t significant heel pain. Treatment Goals Patient/Caregiver Goals 1. To be pain free at both heels for standing and walking 2. To be able to walk her dog at outdoor in a daily basis Personal Factors Other Personal Factors That May Effect fibromyalgia Therapy/Recovery PT-OP-C Subjective Start: 08/20/20 15:04 Freq: Status: Active Protocol: Document 09/19/20 14:08 MA (Rec: 09/19/20 14:29 MA [id number]) OP-PT Subjective Patient Comments Patient Comments My left foot is more sore than my right foot. PT-OP-D Balance Start: 08/20/20 15:04 Freq: Status: Active Protocol: Document 08/20/20 15:04 HH (Rec: 08/20/20 15:15 [email or web address]) Balance Tests Single Limb Standing Single Limb- Right 8 Single Limb- Left 5 PT-OP-F Manual Assessment Start: 08/20/20 15:04 Freq: Status: Active Protocol: Document 08/20/20 15:04 (Rec: 08/20/20 16:46 [email or web address]) Manual Assessments Soft Tissue Assessment Soft Tissue Mobility Assessment significant tenderness to pressure at (L worse than R) insertion of plantar fascia , gastro, achilles insertion bilaterally PT-OP-G Mobility & Gait Start: 08/20/20 15:04 Freq: Status: Active Protocol: Document 08/20/20 15:04 (Rec: 08/20/20 16:46 [email or web address]) OP Gait Assessment Gait Deviations General Gait Pattern Decreased Stride Length, Decreased Feet Clearance Factors Limiting Gait Function Factors Limiting Gait Function Decreased Activity Tolerance, Decreased Strength,Limited Range of Motion,Pain,Poor Balance Comments Gait Comments pt amb with flat foot gait = lack of heel strike and toe push off ( L worse with R) PT-OP-K Range of Motion Start: 08/20/20 15:04 Freq: Status: Active Protocol: Document 08/20/20 15:04 (Rec: 08/20/20 16:46 [email or web address]) Hip Goniometric Range of Motion Hip Right Passive Straight Leg Raise 70 Left Passive Straight Leg Raise 60 Ankle and Foot Goniometric Range of Motion Ankle and Foot Right Active Ankle/Foot ROM WFL No Testing Position Supine Dorsiflexion with Knee Flexed 0 Dorsiflexion with Knee Extended 13 Plantarflexion 40 Inversion 25 Comments B calf raises= 9 times (not full range d/t pain) Left Active Ankle/Foot ROM WFL No Testing Position Supine Dorsiflexion with Knee Flexed 7 Inversion 33 Eversion 23 Comments DF with knee extended = -4 into PF B calf raises= 9 times (not full range d/t pain) Toe Range of Motion Toe Left Great Toe Toe ROM WFL No MTP Flexion Active (degrees) 18 MTP Extension Active (degrees) 20 Right Great Toe Toe ROM WFL No MTP Flexion Active (degrees) 40 MTP Extension Active (degrees) 30 PT-OP-M Strength Start: 08/20/20 15:04 Freq: Status: Active Protocol: Document 08/20/20 15:04 HH (Rec: 08/20/20 16:46 HH [email or web address]) Hip Strength Hip Manual Muscle Testing Right Flexion (L2) 4- Good- Extension (S1) 4- Good- Abduction 3+ Fair+ Adduction 4 Good Left Flexion (L2) 4- Good- Extension (S1) 4- Good- Abduction 3+ Fair+ Adduction 4- Good- Knee Strength Knee Manual Muscle Testing Right Flexion (S2) 4 Good Extension (L3) 4+ Good+ Left Flexion (S2) 4 Good Extension (L3) 4+ Good+ Ankle/Foot Strength Ankle and Foot Manual Muscle Testing Right Dorsiflexion (L4) 4 Good Plantarflexion (S1) 3+ Fair+ Inversion 4- Good- Eversion (S1) 4- Good- Left Dorsiflexion (L4) 4- Good- Plantarflexion (S1) 3+ Fair+ Inversion 4- Good- Eversion (S1) 4- Good- PT-OP-Q Treatments Start: 08/20/20 15:04 Freq: Status: Active Protocol: Document 09/19/20 14:08 MA (Rec: 09/19/20 14:29 MA [id number]) Cardio Equipment Bicycle (Upright) Duration (Minutes) 5 Resistance 5 Therapeutic Exercises Sitting Exercises bap board Side bilateral Equipment Used leve 3 Reps/Minutes PF/DF, clockwise and counter- clockwise marble brain picker Side bilateral Reps/Minutes 5 mins tennis ball release Sitting Exercise Name at plantar fascia Side bilateral Comments for HEP Manual Therapy Treatment Soft Tissue Mobilization plantar fascia Mobilization Type Sustained Pressure,Trigger Point Release Intensity/Depth Moderate Body Position Supine gastro Body Location bilateral Mobilization Type Myofascial Release,Sustained Pressure,Trigger Point Release Intensity/Depth Moderate Body Position Prone Comments tenderness medial > lateral PT-OP-T Assessment and Plan Start: 08/20/20 15:04 Freq: Status: Active Protocol: Document 09/19/20 14:08 MA (Rec: 09/19/20 14:29 MA [id number]) Physical Therapy Assessment Goals return to walking Impairment unable to tolerate grocery shopping Short Term Goal (STG) pt will be able to complete grocery shopping at [facility] with pain no more than 5. STG Duration 5 weeks Care Home Goal (LTG) pt will be able to walk her dog daily for 3 blocks with pain no more than 3/10 LTG Duration 10 weeks ROM Impairment pt has very limited DF d/t calf tightness Short Term Goal (STG) pt will gain up to 5 degrees of DF bilaterally with knee extended. STG Duration 5 weeks Care Home Goal (LTG) pt will gain up to 10 degrees of DF bilaterally with knee extended so she can demonstrate heel strike during initial contact. LTG Duration 10 weeks FAAM Impairment pt scores 21 on FAAM (ADLs) Short Term Goal (STG) pt will score 30 or above on FAAM (ADLS) to improve her ankle mobility and strength for functional activities. STG Duration 5 weeks Cargo Tank Mechanic Goal (LTG) pt will score 40 or above on FAAM (ADLS) to improve her ankle mobility and strength for functional activities. LTG Duration 10 weeks LEFS Impairment pt scores 24 on LEFS Short Term Goal (STG) pt will score 35 or above on LEFS to improve her quality of life STG Duration 5 weeks Care Home Goal (LTG) pt will score 40 or above on LEFS to improve her quality of life LTG Duration 10 weeks Assessment Summary Assessment Pt had some tenderness over L> R plantar fascia and gastroc. Pt had good ROM and control with BAPS board bilaterally today. Ended session with upright bike where pt had 7/10 pain on L foot that disappeared after readjusting foot so arch was on pedal instead of ball of foot. Physical Therapy Plan Frequency and Duration Frequency of Treatment 2x/wk x2, 1x/wk x 4 Duration of Treatment 10 weeks Plan of Care Start Date 08/20/20 Plan of Care End Date 11/03/20 Therapeutic Interventions Therapeutic Interventions Aquatic Therapy,Balance Training,Gait Training,Home Exercise Program,Joint Mobilizations,Manual Therapy, Neuromuscular Re-education, Orthotic/Prosthetic Management ,Patient/Caregiver Education, Self-Care/Home Management,Soft Tissue Mobilization,Taping, Therapeutic Activities, Therapeutic Exercises Modalities Cold Pack/Ice Massage,Electric Stimulation,Hot Packs, Infrared Therapy,Ultrasound Next Visit Focus/Plan Next Note Type Treatment Note Next Visit Plan manual , STM on gastro calf stretch, big toe stretch toe curl, short foot
--- NOTE | 2020-09-24 14:33 | PT.OTN ---
Current Diagnoses Other acquired deformities of right foot (09/24/20) Other acquired deformities of unspecified foot (09/24/20) Plantar fascial fibromatosis (09/24/20) Physical Therapy Treatment Note PT-OP-A Visit Information Start: 08/20/20 15:04 Freq: Status: Active Protocol: Document 09/24/20 13:49 HH (Rec: 09/24/20 14:33 HH [id number]) Out-Patient Physical Therapy Visit Information Visit Information Visit Type Treatment Note Visit Start Time 13:48 Visit Stop Time 14:30 Total Visit Minutes 42 Visit Number 8/9 Number of SET UP MECHANIC STAMPING MACHINES Visits 0 PT-OP-B Current Condition Start: 08/20/20 15:04 Freq: Status: Active Protocol: Document 08/20/20 15:04 HH (Rec: 08/20/20 15:15 HH [email or web address]) Current Condition History of Current Condition Onset Date 5-6 months ago Current Complaints B heel pain L worse than R, difficulty in walking and standing History of Current Condition Pt is a 60yo female here for chronic bilateral heel pain L worse than R. Her pain started getting worse since 5-6 months ago who started walking her dogs daily for 2-3 blocks each time. Her pain level is 9/10 on L and 7/10 on R. Pt went to see and dx with B plantar fasciatis. She c/o worse pain in the morning especially the first few steps after she gets up. Prolonged standing and walking also increase her pain. Pt stated that she is pretty much home bound at this point who does gorcery shop twice a week only d/t significant heel pain. Treatment Goals Patient/Caregiver Goals 1. To be pain free at both heels for standing and walking 2. To be able to walk her dog at outdoor in a daily basis Personal Factors Other Personal Factors That May Effect fibromyalgia Therapy/Recovery PT-OP-C Subjective Start: 08/20/20 15:04 Freq: Status: Active Protocol: Document 09/24/20 13:49 HH (Rec: 09/24/20 14:33 HH [id number]) OP-PT Subjective Patient Comments Patient Comments My calf got sore from last visit. Walking and standing for awhile are still hard Patient Reported Progress Same PT-OP-D Balance Start: 08/20/20 15:04 Freq: Status: Active Protocol: Document 08/20/20 15:04 HH (Rec: 08/20/20 15:15 HH [email or web address]) Balance Tests Single Limb Standing Single Limb- Right 8 Single Limb- Left 5 PT-OP-F Manual Assessment Start: 08/20/20 15:04 Freq: Status: Active Protocol: Document 08/20/20 15:04 HH (Rec: 08/20/20 16:46 HH [email or web address]) Manual Assessments Soft Tissue Assessment Soft Tissue Mobility Assessment significant tenderness to pressure at (L worse than R) insertion of plantar fascia , gastro, achilles insertion bilaterally PT-OP-G Mobility & Gait Start: 08/20/20 15:04 Freq: Status: Active Protocol: Document 08/20/20 15:04 HH (Rec: 08/20/20 16:46 [email or web address]) OP Gait Assessment Gait Deviations General Gait Pattern Decreased Stride Length, Decreased Feet Clearance Factors Limiting Gait Function Factors Limiting Gait Function Decreased Activity Tolerance, Decreased Strength,Limited Range of Motion,Pain,Poor Balance Comments Gait Comments pt amb with flat foot gait = lack of heel strike and toe push off ( L worse with R) PT-OP-K Range of Motion Start: 08/20/20 15:04 Freq: Status: Active Protocol: Document 08/20/20 15:04 HH (Rec: 08/20/20 16:46 [email or web address]) Hip Goniometric Range of Motion Hip Right Passive Straight Leg Raise 70 Left Passive Straight Leg Raise 60 Ankle and Foot Goniometric Range of Motion Ankle and Foot Right Active Ankle/Foot ROM WFL No Testing Position Supine Dorsiflexion with Knee Flexed 0 Dorsiflexion with Knee Extended 13 Plantarflexion 40 Inversion 25 Comments B calf raises= 9 times (not full range d/t pain) Left Active Ankle/Foot ROM WFL No Testing Position Supine Dorsiflexion with Knee Flexed 7 Inversion 33 Eversion 23 Comments DF with knee extended = -4 into PF B calf raises= 9 times (not full range d/t pain) Toe Range of Motion Toe Left Great Toe Toe ROM WFL No MTP Flexion Active (degrees) 18 MTP Extension Active (degrees) 20 Right Great Toe Toe ROM WFL No MTP Flexion Active (degrees) 40 MTP Extension Active (degrees) 30 PT-OP-M Strength Start: 08/20/20 15:04 Freq: Status: Active Protocol: Document 08/20/20 15:04 (Rec: 08/20/20 16:46 [email or web address]) Hip Strength Hip Manual Muscle Testing Right Flexion (L2) 4- Good- Extension (S1) 4- Good- Abduction 3+ Fair+ Adduction 4 Good Left Flexion (L2) 4- Good- Extension (S1) 4- Good- Abduction 3+ Fair+ Adduction 4- Good- Knee Strength Knee Manual Muscle Testing Right Flexion (S2) 4 Good Extension (L3) 4+ Good+ Left Flexion (S2) 4 Good Extension (L3) 4+ Good+ Ankle/Foot Strength Ankle and Foot Manual Muscle Testing Right Dorsiflexion (L4) 4 Good Plantarflexion (S1) 3+ Fair+ Inversion 4- Good- Eversion (S1) 4- Good- Left Dorsiflexion (L4) 4- Good- Plantarflexion (S1) 3+ Fair+ Inversion 4- Good- Eversion (S1) 4- Good- PT-OP-Q Treatments Start: 08/20/20 15:04 Freq: Status: Active Protocol: Document 09/24/20 13:49 (Rec: 09/24/20 14:33 [id number]) Gym Equipment Shuttle Recovery calf raises Resistance 25# Shuttle Recovery Platform Stable Reps/Time 10 x3 Therapeutic Exercises Supine Exercises hamstring stretch Supine Exercise Name PT assisted Side bilateral Reps/Minutes 10 sec hold x 5 DF Equipment Used yellow band Reps/Minutes 10 x2 Sitting Exercises bap board Side bilateral Equipment Used leve 3 Reps/Minutes PF/DF, clockwise and counter- clockwise marble seed cone picker Side bilateral Reps/Minutes 5 mins Standing Exercises ankle board Side bilateral Reps/Minutes 10 x2 Comments for ankle DF and PF gastro stretch Standing Exercise Name staggered stance Side bilateral Reps/Minutes 10 sec hold x4 Comments cues for foot alignment Manual Therapy Treatment Soft Tissue Mobilization plantar fascia Mobilization Type Sustained Pressure,Trigger Point Release Intensity/Depth Moderate Body Position Supine gastro Body Location bilateral Mobilization Type Myofascial Release,Sustained Pressure,Trigger Point Release Intensity/Depth Moderate Body Position Prone Comments tenderness medial > lateral PT-OP-T Assessment and Plan Start: 08/20/20 15:04 Freq: Status: Active Protocol: Document 09/24/20 13:49 (Rec: 09/24/20 14:33 [id number]) Physical Therapy Assessment Goals return to walking Impairment unable to tolerate grocery shopping Short Term Goal (STG) pt will be able to complete grocery shopping at [facility] with pain no more than 5. STG Duration 5 weeks Machine Tank Operator Goal (LTG) pt will be able to walk her dog daily for 3 blocks with pain no more than 3/10 LTG Duration 10 weeks ROM Impairment pt has very limited DF d/t calf tightness Short Term Goal (STG) pt will gain up to 5 degrees of DF bilaterally with knee extended. STG Duration 5 weeks Machine Tank Operator Goal (LTG) pt will gain up to 10 degrees of DF bilaterally with knee extended so she can demonstrate heel strike during initial contact. LTG Duration 10 weeks FAAM Impairment pt scores 21 on FAAM (ADLs) Short Term Goal (STG) pt will score 30 or above on FAAM (ADLS) to improve her ankle mobility and strength for functional activities. STG Duration 5 weeks Correction Goal (LTG) pt will score 40 or above on FAAM (ADLS) to improve her ankle mobility and strength for functional activities. LTG Duration 10 weeks LEFS Impairment pt scores 24 on LEFS Short Term Goal (STG) pt will score 35 or above on LEFS to improve her quality of life STG Duration 5 weeks Correction Goal (LTG) pt will score 40 or above on LEFS to improve her quality of life LTG Duration 10 weeks Assessment Summary Assessment Pt had increased tenderness at ball of L foot and plantar fascia insertion today. Educated pt to stretch for the first thing in the morning instead of after walking her dogs. Also recommended her to stretch before her grocery shop to improve foot flexibility prior to mobility. Physical Therapy Plan Frequency and Duration Frequency of Treatment 2x/wk x2, 1x/wk x 4 Duration of Treatment 10 weeks Plan of Care Start Date 08/20/20 Plan of Care End Date 11/03/20 Next Visit Focus/Plan Next Note Type Treatment Note Next Visit Plan manual , STM on gastro calf stretch, big toe stretch toe curl, short foot
--- NOTE | 2020-10-08 16:15 | PT.OTN ---
Current Diagnoses Other acquired deformities of right foot (10/08/20) Other acquired deformities of unspecified foot (10/08/20) Plantar fascial fibromatosis (10/08/20) Physical Therapy Treatment Note PT-OP-A Visit Information Start: 08/20/20 15:04 Freq: Status: Active Protocol: Document 10/08/20 13:45 HH (Rec: 10/08/20 16:14 HH [id number]) Out-Patient Physical Therapy Visit Information Visit Information Visit Type Treatment Note Visit Start Time 13:46 Visit Stop Time 14:30 Total Visit Minutes 44 Visit Number 05/29 Number of LIABILITY CLAIMS ADJUSTER Visits 0 PT-OP-B Current Condition Start: 08/20/20 15:04 Freq: Status: Active Protocol: Document 08/20/20 15:04 HH (Rec: 08/20/20 15:15 HH [email or web address]) Current Condition History of Current Condition Onset Date 5-6 months ago Current Complaints B heel pain L worse than R, difficulty in walking and standing History of Current Condition Pt is a 60yo female here for chronic bilateral heel pain L worse than R. Her pain started getting worse since 5-6 months ago who started walking her dogs daily for 2-3 blocks each time. Her pain level is 9/10 on L and 7/10 on R. Pt went to see and dx with B plantar fasciatis. She c/o worse pain in the morning especially the first few steps after she gets up. Prolonged standing and walking also increase her pain. Pt stated that she is pretty much home bound at this point who does gorcery shop twice a week only d/t significant heel pain. Treatment Goals Patient/Caregiver Goals 1. To be pain free at both heels for standing and walking 2. To be able to walk her dog at outdoor in a daily basis Personal Factors Other Personal Factors That May Effect fibromyalgia Therapy/Recovery PT-OP-C Subjective Start: 08/20/20 15:04 Freq: Status: Active Protocol: Document 10/08/20 13:45 HH (Rec: 10/08/20 16:14 HH [id number]) OP-PT Subjective Patient Comments Patient Comments Amelia been doing pretty good. But i have been sitting more because of taking care of my dying dog. If i stand a lot at work my L foot = 6/10, R=4/10 . if its not standing much= 3 .5/10 Patient Reported Progress Improving PT-OP-D Balance Start: 08/20/20 15:04 Freq: Status: Active Protocol: Document 08/20/20 15:04 (Rec: 08/20/20 15:15 [email or web address]) Balance Tests Single Limb Standing Single Limb- Right 8 Single Limb- Left 5 PT-OP-F Manual Assessment Start: 08/20/20 15:04 Freq: Status: Active Protocol: Document 08/20/20 15:04 (Rec: 08/20/20 16:46 [email or web address]) Manual Assessments Soft Tissue Assessment Soft Tissue Mobility Assessment significant tenderness to pressure at (L worse than R) insertion of plantar fascia , gastro, achilles insertion bilaterally PT-OP-G Mobility & Gait Start: 08/20/20 15:04 Freq: Status: Active Protocol: Document 08/20/20 15:04 (Rec: 08/20/20 16:46 [email or web address]) OP Gait Assessment Gait Deviations General Gait Pattern Decreased Stride Length, Decreased Feet Clearance Factors Limiting Gait Function Factors Limiting Gait Function Decreased Activity Tolerance, Decreased Strength,Limited Range of Motion,Pain,Poor Balance Comments Gait Comments pt amb with flat foot gait = lack of heel strike and toe push off ( L worse with R) PT-OP-K Range of Motion Start: 08/20/20 15:04 Freq: Status: Active Protocol: Document 08/20/20 15:04 (Rec: 08/20/20 16:46 [email or web address]) Hip Goniometric Range of Motion Hip Right Passive Straight Leg Raise 70 Left Passive Straight Leg Raise 60 Ankle and Foot Goniometric Range of Motion Ankle and Foot Right Active Ankle/Foot ROM WFL No Testing Position Supine Dorsiflexion with Knee Flexed 0 Dorsiflexion with Knee Extended 13 Plantarflexion 40 Inversion 25 Comments B calf raises= 9 times (not full range d/t pain) Left Active Ankle/Foot ROM WFL No Testing Position Supine Dorsiflexion with Knee Flexed 7 Inversion 33 Eversion 23 Comments DF with knee extended = -4 into PF B calf raises= 9 times (not full range d/t pain) Toe Range of Motion Toe Left Great Toe Toe ROM WFL No MTP Flexion Active (degrees) 18 MTP Extension Active (degrees) 20 Right Great Toe Toe ROM WFL No MTP Flexion Active (degrees) 40 MTP Extension Active (degrees) 30 PT-OP-M Strength Start: 08/20/20 15:04 Freq: Status: Active Protocol: Document 08/20/20 15:04 (Rec: 08/20/20 16:46 [email or web address]) Hip Strength Hip Manual Muscle Testing Right Flexion (L2) 4- Good- Extension (S1) 4- Good- Abduction 3+ Fair+ Adduction 4 Good Left Flexion (L2) 4- Good- Extension (S1) 4- Good- Abduction 3+ Fair+ Adduction 4- Good- Knee Strength Knee Manual Muscle Testing Right Flexion (S2) 4 Good Extension (L3) 4+ Good+ Left Flexion (S2) 4 Good Extension (L3) 4+ Good+ Ankle/Foot Strength Ankle and Foot Manual Muscle Testing Right Dorsiflexion (L4) 4 Good Plantarflexion (S1) 3+ Fair+ Inversion 4- Good- Eversion (S1) 4- Good- Left Dorsiflexion (L4) 4- Good- Plantarflexion (S1) 3+ Fair+ Inversion 4- Good- Eversion (S1) 4- Good- PT-OP-Q Treatments Start: 08/20/20 15:04 Freq: Status: Active Protocol: Document 10/08/20 13:45 (Rec: 10/08/20 16:14 [id number]) Cardio Equipment Bicycle (Upright) Duration (Minutes) 5 Resistance 5 Therapeutic Exercises 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 Reps/Minutes 5 mins ankle DF and PF Sitting Exercise Name seated ankle PF and DF Equipment Used half foam roller Reps/Minutes 2 mins Standing Exercises weight shift Equipment Used on blue foam Reps/Minutes 6 mins ankle board Side bilateral Reps/Minutes 10 x2 Comments for ankle DF and PF calf raises Side bilateral Equipment Used on blue foam Reps/Minutes 8 x2 Comments mid range, min discomfort Manual Therapy Treatment Soft Tissue Mobilization plantar fascia Mobilization Type Sustained Pressure,Trigger Point Release Intensity/Depth Moderate Body Position Supine gastro Body Location bilateral Mobilization Type Myofascial Release,Sustained Pressure,Trigger Point Release Intensity/Depth Moderate Body Position Prone Comments tenderness medial > lateral PT-OP-T Assessment and Plan Start: 08/20/20 15:04 Freq: Status: Active Protocol: Document 10/08/20 13:45 (Rec: 10/08/20 16:14 HH [id number]) Physical Therapy Assessment Goals return to walking Impairment unable to tolerate grocery shopping Short Term Goal (STG) pt will be able to complete grocery shopping at [facility] with pain no more than 5. 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 STG Duration 5 weeks Mcc Goal (LTG) pt will gain up to 10 degrees of DF bilaterally with knee extended so she can demonstrate heel strike during initial contact. LTG Duration 10 weeks FAAM Impairment pt scores 21 on FAAM (ADLs) Short Term Goal (STG) pt will score 30 or above on FAAM (ADLS) to improve her ankle mobility and strength for functional activities. STG Duration 5 weeks Energy Infrastructure Engineer Goal (LTG) pt will score 40 or above on FAAM (ADLS) to improve her ankle mobility and strength for functional activities. LTG Duration 10 weeks LEFS Impairment pt scores 24 on LEFS Short Term Goal (STG) pt will score 35 or above on LEFS to improve her quality of life STG Duration 5 weeks Mcc Goal (LTG) pt will score 40 or above on LEFS to improve her quality of life LTG Duration 10 weeks Assessment Summary Assessment pt has shown progress with less pain overall 4/10 on R, 6 /10 on L on a work day. She has good understanding utilizing stretching to minize her pain. Started focusing on balance and strengthening ex. Physical Therapy Plan Frequency and Duration Frequency of Treatment 2x/wk x2, 1x/wk x 4 Duration of Treatment 10 weeks Plan of Care Start Date 08/20/20 Plan of Care End Date 11/03/20 Next Visit Focus/Plan Next Note Type Treatment Note Next Visit Plan manual , STM on gastro calf stretch, big toe stretch toe curl, short foot
--- NOTE | 2020-10-15 16:08 | PT.OTN ---
Current Diagnoses Other acquired deformities of right foot (10/15/20) Other acquired deformities of unspecified foot (10/15/20) Plantar fascial fibromatosis (10/15/20) Physical Therapy Treatment Note PT-OP-A Visit Information Start: 08/20/20 15:04 Freq: Status: Active Protocol: Document 10/15/20 13:40 HH (Rec: 10/15/20 14:35 HH [id number]) Out-Patient Physical Therapy Visit Information Visit Information Visit Type Treatment Note Visit Start Time 13:42 Visit Stop Time 14:27 Total Visit Minutes 45 Visit Number 10 Number of IRON SETTER Visits 0 PT-OP-B Current Condition Start: 08/20/20 15:04 Freq: Status: Active Protocol: Document 08/20/20 15:04 HH (Rec: 08/20/20 15:15 HH [email or web address]) Current Condition History of Current Condition Onset Date 5-6 months ago Current Complaints B heel pain L worse than R, difficulty in walking and standing History of Current Condition Pt is a 60yo female here for chronic bilateral heel pain L worse than R. Her pain started getting worse since 5-6 months ago who started walking her dogs daily for 2-3 blocks each time. Her pain level is 9/10 on L and 7/10 on R. Pt went to see and dx with B plantar fasciatis. She c/o worse pain in the morning especially the first few steps after she gets up. Prolonged standing and walking also increase her pain. Pt stated that she is pretty much home bound at this point who does gorcery shop twice a week only d/t significant heel pain. Treatment Goals Patient/Caregiver Goals 1. To be pain free at both heels for standing and walking 2. To be able to walk her dog at outdoor in a daily basis Personal Factors Other Personal Factors That May Effect fibromyalgia Therapy/Recovery PT-OP-C Subjective Start: 08/20/20 15:04 Freq: Status: Active Protocol: Document 10/15/20 13:40 HH (Rec: 10/15/20 14:35 HH [id number]) OP-PT Subjective Patient Comments Patient Comments Amelia been doing the calf raises and it left me soreness everyday. Patient Reported Progress Improving PT-OP-D Balance Start: 08/20/20 15:04 Freq: Status: Active Protocol: Document 08/20/20 15:04 HH (Rec: 08/20/20 15:15 [email or web address]) Balance Tests Single Limb Standing Single Limb- Right 8 Single Limb- Left 5 PT-OP-F Manual Assessment Start: 08/20/20 15:04 Freq: Status: Active Protocol: Document 08/20/20 15:04 (Rec: 08/20/20 16:46 [email or web address]) Manual Assessments Soft Tissue Assessment Soft Tissue Mobility Assessment significant tenderness to pressure at (L worse than R) insertion of plantar fascia , gastro, achilles insertion bilaterally PT-OP-G Mobility & Gait Start: 08/20/20 15:04 Freq: Status: Active Protocol: Document 08/20/20 15:04 (Rec: 08/20/20 16:46 [email or web address]) OP Gait Assessment Gait Deviations General Gait Pattern Decreased Stride Length, Decreased Feet Clearance Factors Limiting Gait Function Factors Limiting Gait Function Decreased Activity Tolerance, Decreased Strength,Limited Range of Motion,Pain,Poor Balance Comments Gait Comments pt amb with flat foot gait = lack of heel strike and toe push off ( L worse with R) PT-OP-K Range of Motion Start: 08/20/20 15:04 Freq: Status: Active Protocol: Document 08/20/20 15:04 (Rec: 08/20/20 16:46 [email or web address]) Hip Goniometric Range of Motion Hip Right Passive Straight Leg Raise 70 Left Passive Straight Leg Raise 60 Ankle and Foot Goniometric Range of Motion Ankle and Foot Right Active Ankle/Foot ROM WFL No Testing Position Supine Dorsiflexion with Knee Flexed 0 Dorsiflexion with Knee Extended 13 Plantarflexion 40 Inversion 25 Comments B calf raises= 9 times (not full range d/t pain) Left Active Ankle/Foot ROM WFL No Testing Position Supine Dorsiflexion with Knee Flexed 7 Inversion 33 Eversion 23 Comments DF with knee extended = -4 into PF B calf raises= 9 times (not full range d/t pain) Toe Range of Motion Toe Left Great Toe Toe ROM WFL No MTP Flexion Active (degrees) 18 MTP Extension Active (degrees) 20 Right Great Toe Toe ROM WFL No MTP Flexion Active (degrees) 40 MTP Extension Active (degrees) 30 PT-OP-M Strength Start: 08/20/20 15:04 Freq: Status: Active Protocol: Document 08/20/20 15:04 HH (Rec: 08/20/20 16:46 HH [email or web address]) Hip Strength Hip Manual Muscle Testing Right Flexion (L2) 4- Good- Extension (S1) 4- Good- Abduction 3+ Fair+ Adduction 4 Good Left Flexion (L2) 4- Good- Extension (S1) 4- Good- Abduction 3+ Fair+ Adduction 4- Good- Knee Strength Knee Manual Muscle Testing Right Flexion (S2) 4 Good Extension (L3) 4+ Good+ Left Flexion (S2) 4 Good Extension (L3) 4+ Good+ Ankle/Foot Strength Ankle and Foot Manual Muscle Testing Right Dorsiflexion (L4) 4 Good Plantarflexion (S1) 3+ Fair+ Inversion 4- Good- Eversion (S1) 4- Good- Left Dorsiflexion (L4) 4- Good- Plantarflexion (S1) 3+ Fair+ Inversion 4- Good- Eversion (S1) 4- Good- PT-OP-Q Treatments Start: 08/20/20 15:04 Freq: Status: Active Protocol: Document 10/15/20 13:40 (Rec: 10/15/20 14:35 [id number]) Cardio Equipment Recumbent Bicycle Duration (Minutes) 5 Resistance 5 Bicycle (Upright) Duration (Minutes) 5 Resistance 5 Therapeutic Exercises Supine Exercises DF Reps/Minutes 10 x2 Sitting Exercises ankle PF Equipment Used level2 band Reps/Minutes 5 reps x 2 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 Reps/Minutes 5 mins ankle DF and PF Sitting Exercise Name seated ankle PF and DF Equipment Used half foam roller Reps/Minutes 2 mins Standing Exercises weight shift Equipment Used on blue foam Reps/Minutes 6 mins ankle board Side bilateral Reps/Minutes 10 x2 Comments for ankle DF and PF calf raises Side bilateral Equipment Used on blue foam Reps/Minutes 8 x2 Comments mid range, min discomfort gastro stretch Standing Exercise Name staggered stance Side bilateral Reps/Minutes 10 sec hold x4 Comments cues for foot alignment Manual Therapy Treatment Soft Tissue Mobilization plantar fascia Mobilization Type Sustained Pressure,Trigger Point Release Intensity/Depth Moderate Body Position Supine Comments significant tenderness at distal plantar fascia and MTP regions gastro Body Location bilateral Mobilization Type Myofascial Release,Sustained Pressure,Trigger Point Release Intensity/Depth Moderate Body Position Prone Comments tenderness medial > lateral PT-OP-T Assessment and Plan Start: 08/20/20 15:04 Freq: Status: Active Protocol: Document 10/15/20 13:40 HH (Rec: 10/15/20 14:35 [id number]) Physical Therapy Assessment Goals return to walking Impairment unable to tolerate grocery shopping Short Term Goal (STG) pt will be able to complete grocery shopping at [facility] with pain no more than 5. STG Duration 5 weeks Nursing Home Goal (LTG) pt will be able to walk her dog daily for 3 blocks with pain no more than 3/10 LTG Duration 10 weeks ROM Impairment pt has very limited DF d/t calf tightness Short Term Goal (STG) pt will gain up to 5 degrees of DF bilaterally with knee extended. STG Duration 5 weeks Nursing Home Goal (LTG) pt will gain up to 10 degrees of DF bilaterally with knee extended so she can demonstrate heel strike during initial contact. LTG Duration 10 weeks FAAM Impairment pt scores 21 on FAAM (ADLs) Short Term Goal (STG) pt will score 30 or above on FAAM (ADLS) to improve her ankle mobility and strength for functional activities. STG Duration 5 weeks Ballet Master/Mistress Goal (LTG) pt will score 40 or above on FAAM (ADLS) to improve her ankle mobility and strength for functional activities. LTG Duration 10 weeks LEFS Impairment pt scores 24 on LEFS Short Term Goal (STG) pt will score 35 or above on LEFS to improve her quality of life STG Duration 5 weeks Nursing Home Goal (LTG) pt will score 40 or above on LEFS to improve her quality of life LTG Duration 10 weeks Assessment Summary Assessment Pt has flares up after practicing calf raises at home since last visit. Educated pt to allow herself some recovery time and switched calf rasies to PF with theraband instead. Will reassess next visit Physical Therapy Plan Frequency and Duration Frequency of Treatment 2x/wk x2, 1x/wk x 4 Duration of Treatment 10 weeks Plan of Care Start Date 08/20/20 Plan of Care End Date 11/03/20 Next Visit Focus/Plan Next Note Type Treatment Note Next Visit Plan manual , STM on gastro calf stretch, big toe stretch toe curl, short foot
--- NOTE | 2020-10-22 13:43 | PT.OTN ---
Current Diagnoses Other acquired deformities of right foot (10/22/20) Other acquired deformities of unspecified foot (10/22/20) Plantar fascial fibromatosis (10/22/20) Physical Therapy Treatment Note PT-OP-A Visit Information Start: 08/20/20 15:04 Freq: Status: Active Protocol: Document 10/22/20 12:56 HH (Rec: 10/22/20 13:43 HH [id number]) Out-Patient Physical Therapy Visit Information Visit Information Visit Type Treatment Note Visit Start Time 13:00 Visit Stop Time 13:44 Total Visit Minutes 44 Visit Number 11 Number of PRINCIPAL STRATEGIST Visits 0 PT-OP-B Current Condition Start: 08/20/20 15:04 Freq: Status: Active Protocol: Document 08/20/20 15:04 HH (Rec: 08/20/20 15:15 HH [email or web address]) Current Condition History of Current Condition Onset Date 5-6 months ago Current Complaints B heel pain L worse than R, difficulty in walking and standing History of Current Condition Pt is a 60yo female here for chronic bilateral heel pain L worse than R. Her pain started getting worse since 5-6 months ago who started walking her dogs daily for 2-3 blocks each time. Her pain level is 9/10 on L and 7/10 on R. Pt went to see and dx with B plantar fasciatis. She c/o worse pain in the morning especially the first few steps after she gets up. Prolonged standing and walking also increase her pain. Pt stated that she is pretty much home bound at this point who does gorcery shop twice a week only d/t significant heel pain. Treatment Goals Patient/Caregiver Goals 1. To be pain free at both heels for standing and walking 2. To be able to walk her dog at outdoor in a daily basis Personal Factors Other Personal Factors That May Effect fibromyalgia Therapy/Recovery PT-OP-C Subjective Start: 08/20/20 15:04 Freq: Status: Active Protocol: Document 10/22/20 12:56 HH (Rec: 10/22/20 13:43 HH [id number]) OP-PT Subjective Patient Comments Patient Comments I took a few days off from last session then i started my exercises again on Wednesday and its been okay. I was standing a lot during the weekends Patient Reported Progress Improving PT-OP-D Balance Start: 08/20/20 15:04 Freq: Status: Active Protocol: Document 08/20/20 15:04 (Rec: 08/20/20 15:15 [email or web address]) Balance Tests Single Limb Standing Single Limb- Right 8 Single Limb- Left 5 PT-OP-F Manual Assessment Start: 08/20/20 15:04 Freq: Status: Active Protocol: Document 08/20/20 15:04 (Rec: 08/20/20 16:46 [email or web address]) Manual Assessments Soft Tissue Assessment Soft Tissue Mobility Assessment significant tenderness to pressure at (L worse than R) insertion of plantar fascia , gastro, achilles insertion bilaterally PT-OP-G Mobility & Gait Start: 08/20/20 15:04 Freq: Status: Active Protocol: Document 08/20/20 15:04 (Rec: 08/20/20 16:46 [email or web address]) OP Gait Assessment Gait Deviations General Gait Pattern Decreased Stride Length, Decreased Feet Clearance Factors Limiting Gait Function Factors Limiting Gait Function Decreased Activity Tolerance, Decreased Strength,Limited Range of Motion,Pain,Poor Balance Comments Gait Comments pt amb with flat foot gait = lack of heel strike and toe push off ( L worse with R) PT-OP-K Range of Motion Start: 08/20/20 15:04 Freq: Status: Active Protocol: Document 08/20/20 15:04 (Rec: 08/20/20 16:46 [email or web address]) Hip Goniometric Range of Motion Hip Right Passive Straight Leg Raise 70 Left Passive Straight Leg Raise 60 Ankle and Foot Goniometric Range of Motion Ankle and Foot Right Active Ankle/Foot ROM WFL No Testing Position Supine Dorsiflexion with Knee Flexed 0 Dorsiflexion with Knee Extended 13 Plantarflexion 40 Inversion 25 Comments B calf raises= 9 times (not full range d/t pain) Left Active Ankle/Foot ROM WFL No Testing Position Supine Dorsiflexion with Knee Flexed 7 Inversion 33 Eversion 23 Comments DF with knee extended = -4 into PF B calf raises= 9 times (not full range d/t pain) Toe Range of Motion Toe Left Great Toe Toe ROM WFL No MTP Flexion Active (degrees) 18 MTP Extension Active (degrees) 20 Right Great Toe Toe ROM WFL No MTP Flexion Active (degrees) 40 MTP Extension Active (degrees) 30 PT-OP-M Strength Start: 08/20/20 15:04 Freq: Status: Active Protocol: Document 08/20/20 15:04 (Rec: 08/20/20 16:46 [email or web address]) Hip Strength Hip Manual Muscle Testing Right Flexion (L2) 4- Good- Extension (S1) 4- Good- Abduction 3+ Fair+ Adduction 4 Good Left Flexion (L2) 4- Good- Extension (S1) 4- Good- Abduction 3+ Fair+ Adduction 4- Good- Knee Strength Knee Manual Muscle Testing Right Flexion (S2) 4 Good Extension (L3) 4+ Good+ Left Flexion (S2) 4 Good Extension (L3) 4+ Good+ Ankle/Foot Strength Ankle and Foot Manual Muscle Testing Right Dorsiflexion (L4) 4 Good Plantarflexion (S1) 3+ Fair+ Inversion 4- Good- Eversion (S1) 4- Good- Left Dorsiflexion (L4) 4- Good- Plantarflexion (S1) 3+ Fair+ Inversion 4- Good- Eversion (S1) 4- Good- PT-OP-Q Treatments Start: 08/20/20 15:04 Freq: Status: Active Protocol: Document 10/22/20 12:56 (Rec: 10/22/20 13:43 [id number]) Cardio Equipment Bicycle (Upright) Duration (Minutes) 8 Resistance 5 Gym Equipment Shuttle Recovery calf raises Resistance 37# Shuttle Recovery Platform Stable Reps/Time no dsicomfort noted. Therapeutic Exercises Supine Exercises tennis ball release Supine Exercise Name L glute Side left Comments for HEP hamstring stretch Side left Reps/Minutes 10 sec x 5 Comments LLE improved after manual therapyat L hip Sitting Exercises ankle PF Equipment Used level2 band Reps/Minutes 5 reps x 2 Comments for HEP marble package pick up Side bilateral Reps/Minutes 5 mins ankle DF and PF Sitting Exercise Name seated ankle PF and DF Equipment Used half foam roller Reps/Minutes 2 mins Standing Exercises ankle board Side bilateral Reps/Minutes 10 x2 Comments for ankle DF and PF Manual Therapy Treatment Soft Tissue Mobilization L glute Mobilization Type Sustained Pressure,Trigger Point Release Intensity/Depth Moderate Body Position Sidelying Comments sginificant tenderness to pressure at L sIJ, and gluteal muscle group. plantar fascia Mobilization Type Sustained Pressure,Trigger Point Release Intensity/Depth Moderate Body Position Supine Comments significant tenderness at distal plantar fascia and MTP regions PT-OP-T Assessment and Plan Start: 12/01/20 15:04 Freq: Status: Active Protocol: Document 10/22/20 12:56 HH (Rec: 10/22/20 13:43 HH [id number]) Physical Therapy Assessment Goals return to walking Impairment unable to tolerate grocery shopping Short Term Goal (STG) pt will be able to complete grocery shopping at [facility] with pain no more than 5. STG Duration 5 weeks [facility] Goal (LTG) pt will be able to walk her dog daily for 3 blocks with pain no more than 3/10 LTG Duration 10 weeks ROM Impairment pt has very limited DF d/t calf tightness Short Term Goal (STG) pt will gain up to 5 degrees of DF bilaterally with knee extended. STG Duration 5 weeks Glassware Defect Repairer Goal (LTG) pt will gain up to 10 degrees of DF bilaterally with knee extended so she can demonstrate heel strike during initial contact. LTG Duration 10 weeks FAAM Impairment pt scores 21 on FAAM (ADLs) Short Term Goal (STG) pt will score 30 or above on FAAM (ADLS) to improve her ankle mobility and strength for functional activities. STG Duration 5 weeks Glassware Defect Repairer Goal (LTG) pt will score 40 or above on FAAM (ADLS) to improve her ankle mobility and strength for functional activities. LTG Duration 10 weeks LEFS Impairment pt scores 24 on LEFS Short Term Goal (STG) pt will score 35 or above on LEFS to improve her quality of life STG Duration 5 weeks [facility] Goal (LTG) pt will score 40 or above on LEFS to improve her quality of life LTG Duration 10 weeks Assessment Summary Assessment Pt santana session very well today without any flare ups. Focused on stretching, ankle DF/PF, foot intrinsice strengthening and calf raises on leg press instead of standing. Physical Therapy Plan Frequency and Duration Frequency of Treatment 2x/wk x2, 1x/wk x 4 Duration of Treatment 10 weeks Plan of Care Start Date 08/20/20 Plan of Care End Date 11/03/20 Next Visit Focus/Plan Next Note Type Treatment Note Next Visit Plan manual , STM on gastro calf stretch,ankle DFPF, blue foam, leg press
--- NOTE | 2020-10-29 16:27 | PT.OPPOC ---
Physical, Occupational & Speech Therapy At [facility] Current Diagnoses Other acquired deformities of right foot (10/29/20) Other acquired deformities of unspecified foot (10/29/20) Plantar fascial fibromatosis (10/29/20) Visit Care Team Role Provider Type Scott Mckinney MD Primary Care Provider Physician Specialty: Family Practice Address: [address] [place] [address], [id number] Email: [email or web address] Ben David DPM Attending Provider Non-Staff Referring Provider Specialty: Podiatry Address: [address] [place] [address], [id number] Email: Plan Of Care PT-OP-T Assessment and Plan Start: 08/20/20 15:04 Freq: Status: Active Protocol: Document 10/29/20 12:50 HH (Rec: 10/29/20 13:51 HH [id number]) Physical Therapy Assessment Goals return to walking Impairment unable to tolerate grocery shopping Short Term Goal (STG) 10/29 cont in progress pt still has pain up to 8 after shopping at [employer] but she feels less painful at other stores. STG Duration 2 [facility] Goal (LTG) pt will be able to walk her dog daily for 3 blocks with pain no more than 3/10 LTG Duration 10 weeks ROM Impairment pt has very limited DF d/t calf tightness Short Term Goal (STG) 10/29 L = 3 degrees DF cont in progress 10/29 goal met on R = 12 degrees DF pt will gain up to 5 degrees of DF bilaterally with knee extended. STG Duration 5 weeks Fdc Goal (LTG) pt will gain up to 10 degrees of DF bilaterally with knee extended so she can demonstrate heel strike during initial contact. LTG Duration 10 weeks FAAM Impairment pt scores 21 on FAAM (ADLs) Short Term Goal (STG) 2 goal met pt scores 36 STG Duration 5 weeks Fdc Goal (LTG) pt will score 40 or above on FAAM (ADLS) to improve her ankle mobility and strength for functional activities. LTG Duration 10 weeks LEFS Impairment pt scores 24 on LEFS Short Term Goal (STG) 2/9 goal met pt reaches 46 /80 on LEFS STG Duration 2/9 Fdc Goal (LTG) pt will score 55 or above on LEFS to improve her quality of life LTG Duration 8 weeks Progress Towards Goals Progress Towards Goals Progressing Toward Goals,Slow Progress due to Activity Tolerance,Slow Progress - Other Assessment Summary Assessment pt overall progress slowly with her L foot d/t high pain sensitivity but her R foot has signifciant improvements with pain ~2/10 only. Pt cont to have lack of DF on L (3 degrees) and significant calf tightness. Educated pt to toe stretch, and increased her stretching frequency to 2-3 times a day, along with 5-10 mins walking x 2times day to increase her activity tolerance. Pt will cont to benefit from skilled therapy to increase her L ankle DF, reduce gastro complex tightness, foot intrinsic strength and overall activity tolerance. Physical Therapy Plan Frequency and Duration Frequency of Treatment 1x/Week Duration of Treatment 8 weeks Plan of Care Start Date 10/29/20 Plan of Care End Date 12/28/20 Therapeutic Interventions Therapeutic Interventions Balance Training,Gait Training ,Home Exercise Program,Joint Mobilizations,Manual Therapy, Neuromuscular Re-education, Orthotic/Prosthetic Management ,Patient/Caregiver Education, Self-Care/Home Management,Soft Tissue Mobilization,Taping, Therapeutic Activities, Therapeutic Exercises Modalities Cold Pack/Ice Massage,Electric Stimulation,Hot Packs, Infrared Therapy,Paraffin Bath ,Ultrasound Next Visit Focus/Plan Next Note Type Treatment Note Next Visit Plan R foot =wFL, L foot= difficulty in WB position, very painful manual , STM on gastro calf stretch,ankle DFPF ROM and strengthening exer in open chain position, gait training if needed Plan of Care Dates Plan of Care Start Date 10/29/20 Plan of Care End Date 12/28/20 Electronically Signed by: Merary Jaimes, PT 10/29/20 [id number] Please Sign and Return: I have reviewed this Plan of Care and certify that the skilled therapy services above are required to meet the patient?s needs. Physician Signature Date Printed Name and Credentials Clinical Instructor Signature Printed Name and Credentials
--- NOTE | 2020-10-29 16:28 | PT.OPPN ---
Current Diagnoses Other acquired deformities of right foot (10/29/20) Other acquired deformities of unspecified foot (10/29/20) Plantar fascial fibromatosis (10/29/20) Physical Therapy Progress Note PT-OP-A Visit Information Start: 08/20/20 15:04 Freq: Status: Active Protocol: Document 10/29/20 12:50 HH (Rec: 10/29/20 13:51 HH [id number]) Out-Patient Physical Therapy Visit Information Visit Information Visit Type Progress Note Visit Start Time 13:00 Visit Stop Time 13:45 Total Visit Minutes 45 Visit Number 12 Number of ELEVATING GRADER OPERATOR Visits 0 PT-OP-B Current Condition Start: 08/20/20 15:04 Freq: Status: Active Protocol: Document 08/20/20 15:04 HH (Rec: 08/20/20 15:15 HH [email or web address]) Current Condition History of Current Condition Onset Date 5-6 months ago Current Complaints B heel pain L worse than R, difficulty in walking and standing History of Current Condition Pt is a 60yo female here for chronic bilateral heel pain L worse than R. Her pain started getting worse since 5-6 months ago who started walking her dogs daily for 2-3 blocks each time. Her pain level is 9/10 on L and 7/10 on R. Pt went to see and dx with B plantar fasciatis. She c/o worse pain in the morning especially the first few steps after she gets up. Prolonged standing and walking also increase her pain. Pt stated that she is pretty much home bound at this point who does gorcery shop twice a week only d/t significant heel pain. Treatment Goals Patient/Caregiver Goals 1. To be pain free at both heels for standing and walking 2. To be able to walk her dog at outdoor in a daily basis Personal Factors Other Personal Factors That May Effect fibromyalgia Therapy/Recovery PT-OP-C Subjective Start: 08/20/20 15:04 Freq: Status: Active Protocol: Document 10/29/20 12:50 HH (Rec: 10/29/20 13:51 [id number]) OP-PT Subjective Patient Comments Patient Comments I went to see orchid grower Dr. David this morning and he recommended to do therapy and increase my stretches 3 times a day. I did get sore from last visit and it took me a few days to recover. Patient Reported Progress Improving Patient Questionnaires Foot & Ankle Ability Measure- ADL and Sports FAAM-ADL Score 36 FAAM-ADL Impairment 40 to 59% Impaired (Score 33- 49) Lower Extremity Functional Scale LEFS Score 46 LEFS Impairment 40 to 59% Impaired (Score 32- 47) PT-OP-D Balance Start: 08/20/20 15:04 Freq: Status: Active Protocol: Document 08/20/20 15:04 HH (Rec: 08/20/20 15:15 HH [email or web address]) Balance Tests Single Limb Standing Single Limb- Right 8 Single Limb- Left 5 PT-OP-F Manual Assessment Start: 08/20/20 15:04 Freq: Status: Active Protocol: Document 08/20/20 15:04 HH (Rec: 08/20/20 16:46 [email or web address]) Manual Assessments Soft Tissue Assessment Soft Tissue Mobility Assessment significant tenderness to pressure at (L worse than R) insertion of plantar fascia , gastro, achilles insertion bilaterally PT-OP-G Mobility & Gait Start: 08/20/20 15:04 Freq: Status: Active Protocol: Document 08/20/20 15:04 HH (Rec: 08/20/20 16:46 [email or web address]) OP Gait Assessment Gait Deviations General Gait Pattern Decreased Stride Length, Decreased Feet Clearance Factors Limiting Gait Function Factors Limiting Gait Function Decreased Activity Tolerance, Decreased Strength,Limited Range of Motion,Pain,Poor Balance Comments Gait Comments pt amb with flat foot gait = lack of heel strike and toe push off ( L worse with R) PT-OP-K Range of Motion Start: 08/20/20 15:04 Freq: Status: Active Protocol: Document 10/29/20 12:50 HH (Rec: 10/29/20 13:51 [id number]) Ankle and Foot Goniometric Range of Motion Ankle and Foot Measured in Degrees Right Active Ankle/Foot ROM WFL Yes Testing Position Supine Dorsiflexion with Knee Extended 12 Left Active Ankle/Foot ROM WFL No Testing Position Supine Dorsiflexion with Knee Extended 3 PT-OP-M Strength Start: 08/20/20 15:04 Freq: Status: Active Protocol: Document 10/29/20 12:50 HH (Rec: 10/29/20 13:51 [id number]) Ankle/Foot Strength Ankle and Foot Manual Muscle Testing Right Dorsiflexion (L4) 4- Good- Left Dorsiflexion (L4) 4+ Good+ PT-OP-T Assessment and Plan Start: 08/20/20 15:04 Freq: Status: Active Protocol: Document 10/29/20 12:50 HH (Rec: 10/29/20 13:51 HH [id number]) Physical Therapy Assessment Goals return to walking Impairment unable to tolerate grocery shopping Short Term Goal (STG) 2 cont in progress pt still has pain up to 8 after shopping at [employer] but she feels less painful at other stores. STG Duration 2 Technical Applications Specialist Goal (LTG) pt will be able to walk her dog daily for 3 blocks with pain no more than 3/10 LTG Duration 10 weeks ROM Impairment pt has very limited DF d/t calf tightness Short Term Goal (STG) 10/29 L = 3 degrees DF cont in progress 10/29 goal met on R = 12 degrees DF pt will gain up to 5 degrees of DF bilaterally with knee extended. STG Duration 5 weeks Technical Applications Specialist Goal (LTG) pt will gain up to 10 degrees of DF bilaterally with knee extended so she can demonstrate heel strike during initial contact. LTG Duration 10 weeks FAAM Impairment pt scores 21 on FAAM (ADLs) Short Term Goal (STG) 29 goal met pt scores 36 STG Duration 5 weeks Fdc Goal (LTG) pt will score 40 or above on FAAM (ADLS) to improve her ankle mobility and strength for functional activities. LTG Duration 10 weeks LEFS Impairment pt scores 24 on LEFS Short Term Goal (STG) 2 goal met pt reaches 46 /80 on LEFS STG Duration 2 Technical Applications Specialist Goal (LTG) pt will score 55 or above on LEFS to improve her quality of life LTG Duration 8 weeks Progress Towards Goals Progress Towards Goals Progressing Toward Goals,Slow Progress due to Activity Tolerance,Slow Progress - Other Assessment Summary Assessment pt overall progress slowly with her L foot d/t high pain sensitivity but her R foot has signifciant improvements with pain ~2/10 only. Pt cont to have lack of DF on L (3 degrees) and significant calf tightness. Educated pt to toe stretch, and increased her stretching frequency to 2-3 times a day, along with 5-10 mins walking x 2times day to increase her activity tolerance. Pt will cont to benefit from skilled therapy to increase her L ankle DF, reduce gastro complex tightness, foot intrinsic strength and overall activity tolerance. Physical Therapy Plan Frequency and Duration Frequency of Treatment 1x/Week Duration of Treatment 8 weeks Plan of Care Start Date 10/29/20 Plan of Care End Date 12/28/20 Therapeutic Interventions Therapeutic Interventions Balance Training,Gait Training ,Home Exercise Program,Joint Mobilizations,Manual Therapy, Neuromuscular Re-education, Orthotic/Prosthetic Management ,Patient/Caregiver Education, Self-Care/Home Management,Soft Tissue Mobilization,Taping, Therapeutic Activities, Therapeutic Exercises Modalities Cold Pack/Ice Massage,Electric Stimulation,Hot Packs, Infrared Therapy,Paraffin Bath ,Ultrasound Next Visit Focus/Plan Next Note Type Treatment Note Next Visit Plan R foot =wFL, L foot= difficulty in WB position, very painful manual , STM on gastro calf stretch,ankle DFPF ROM and strengthening exer in open chain position, gait training if needed
--- NOTE | 2020-11-14 12:07 | PT.OTN ---
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 Her pain started getting worse since 5-6 months ago who started walking her dogs daily for 2-3 blocks each time. Her pain level is 9/10 on L and 7/10 on R. Pt went to see and dx with B plantar fasciatis. She c/o worse pain in the morning especially the first few steps after she gets up. Prolonged standing and walking also increase her pain. Pt stated that she is pretty much home bound at this point who does gorcery shop twice a week only d/t significant heel pain. Treatment Goals Patient/Caregiver Goals 1. To be pain free at both heels for standing and walking 2. To be able to walk her dog at outdoor in a daily basis Personal Factors Other Personal Factors That May Effect fibromyalgia Therapy/Recovery PT-OP-C Subjective Start: 08/20/20 15:04 Freq: Status: Active Protocol: Document 11/14/20 11:18 HH (Rec: 11/14/20 12:07 [id number]) OP-PT Subjective Patient Comments Patient Comments One of my dogs so its been rough on me.My R side is pretty much recovered now. My L side on a good = 3/ 10, bad day= 5/10. Patient Reported Progress Improving PT-OP-D Balance Start: 12/01/20 15:04 Freq: Status: Active Protocol: Document 08/20/20 15:04 HH (Rec: 08/20/20 15:15 HH [email or web address]) Balance Tests Single Limb Standing Single Limb- Right 8 Single Limb- Left 5 PT-OP-F Manual Assessment Start: 08/20/20 15:04 Freq: Status: Active Protocol: Document 08/20/20 15:04 HH (Rec: 08/20/20 16:46 HH [email or web address]) Manual Assessments Soft Tissue Assessment Soft Tissue Mobility Assessment significant tenderness to pressure at (L worse than R) insertion of plantar fascia , gastro, achilles insertion bilaterally PT-OP-G Mobility & Gait Start: 08/20/20 15:04 Freq: Status: Active Protocol: Document 08/20/20 15:04 HH (Rec: 08/20/20 16:46 [email or web address]) OP Gait Assessment Gait Deviations General Gait Pattern Decreased Stride Length, Decreased Feet Clearance Factors Limiting Gait Function Factors Limiting Gait Function Decreased Activity Tolerance, Decreased Strength,Limited Range of Motion,Pain,Poor Balance Comments Gait Comments pt amb with flat foot gait = lack of heel strike and toe push off ( L worse with R) PT-OP-K Range of Motion Start: 08/20/20 15:04 Freq: Status: Active Protocol: Document 10/29/20 12:50 HH (Rec: 10/29/20 13:51 [id number]) Ankle and Foot Goniometric Range of Motion Ankle and Foot Right Active Ankle/Foot ROM WFL Yes Testing Position Supine Dorsiflexion with Knee Extended 12 Left Active Ankle/Foot ROM WFL No Testing Position Supine Dorsiflexion with Knee Extended 3 PT-OP-M Strength Start: 08/20/20 15:04 Freq: Status: Active Protocol: Document 10/29/20 12:50 HH (Rec: 10/29/20 13:51 [id number]) Ankle/Foot Strength Ankle and Foot Manual Muscle Testing Right Dorsiflexion (L4) 4- Good- Left Dorsiflexion (L4) 4+ Good+ PT-OP-Q Treatments Start: 08/20/20 15:04 Freq: Status: Active Protocol: Document 11/14/20 11:18 HH (Rec: 11/14/20 12:07 HH [id number]) Cardio Equipment Bicycle (Upright) Duration (Minutes) 8 Resistance 5 Therapeutic Exercises Sitting Exercises toe abduction and big toe extension Side bilateral Reps/Minutes 5 mins Comments pt has difficulty with big toe extension ankle PF Equipment Used level2 band Reps/Minutes 5 reps x 2 Comments for 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 Side bilateral Reps/Minutes 5 mins ankle DF and PF Sitting Exercise Name seated ankle PF and DF Equipment Used half foam roller Reps/Minutes 2 mins plantar fascia stretch Side bilateral Reps/Minutes 4 mins Standing Exercises tennis ball Standing Exercise Name at plantar fascia, with big toe extension and abduction Side bilateral Reps/Minutes 2 mins ankle board Side bilateral Reps/Minutes 10 x2 Comments for ankle DF and PF calf raises Side bilateral Reps/Minutes 10 sec x 2 gastro stretch Side bilateral Reps/Minutes 8 x2 PT-OP-T Assessment and Plan Start: 08/20/20 15:04 Freq: Status: Active Protocol: Document 11/14/20 11:18 (Rec: 11/14/20 12:07 [id number]) Physical Therapy Assessment Goals return to walking Impairment unable to tolerate grocery shopping Short Term Goal (STG) 10/29 cont in progress pt still has pain up to 8 after shopping at [employer] but she feels less painful at other stores. STG Duration 10/29 Intermediate Goal (LTG) pt will be able to walk her dog daily for 3 blocks with pain no more than 3/10 LTG Duration 10 weeks ROM Impairment pt has very limited DF d/t calf tightness Short Term Goal (STG) 10/29 L = 3 degrees DF cont in progress 10/29 goal met on R = 12 degrees DF pt will gain up to 5 degrees of DF bilaterally with knee extended. STG Duration 5 weeks Intermediate Goal (LTG) pt will gain up to 10 degrees of DF bilaterally with knee extended so she can demonstrate heel strike during initial contact. LTG Duration 10 weeks FAAM Impairment pt scores 21 on FAAM (ADLs) Short Term Goal (STG) 10/29 goal met pt scores 36 STG Duration 5 weeks Intermediate Goal (LTG) pt will score 40 or above on FAAM (ADLS) to improve her ankle mobility and strength for functional activities. LTG Duration 10 weeks LEFS Impairment pt scores 24 on LEFS Short Term Goal (STG) 10/29 goal met pt reaches 46 /80 on LEFS STG Duration 9 Intermediate Goal (LTG) pt will score 55 or above on LEFS to improve her quality of life LTG Duration 8 weeks Assessment Summary Assessment Pt cont to improved. She stated her R foot is almost fully recovered but pain at L foot 3/10 at best, 5/10 at worst. However, pt's insuracne coverage is up but she will still benefit from skilled therapy to progress her activity tolerance by increasing her overall foot and toe mobility and strength. Physical Therapy Plan Frequency and Duration Frequency of Treatment 1x/Week Duration of Treatment 8 weeks Plan of Care Start Date 10/29/20 Plan of Care End Date 12/28/20 Next Visit Focus/Plan Next Note Type Treatment Note Next Visit Plan R foot =wFL, L foot= difficulty in WB position, very painful manual , STM on gastro calf stretch,ankle DFPF ROM and strengthening exer in open chain position, gait training if needed
--- NOTE | 2021-01-13 09:31 | PT.OPDS ---
Current Diagnoses Other acquired deformities of right foot (11/14/20) Other acquired deformities of unspecified foot (11/14/20) Plantar fascial fibromatosis (11/14/20) Visit Care Team Role Provider Type Scott Mckinney MD Primary Care Provider Physician Specialty: Family Practice Address: [address] [place] [address], [id number] Email: [email or web address] Ben David DPM Attending Provider Non-Staff Referring Provider Specialty: Podiatry Address: [address] [place] [address], [phone] Email: Visit Number Visit Number 13 Discharge Summary PT-OP-T Assessment and Plan Start: 08/20/20 15:04 Freq: Status: Active Protocol: Document 01/13/21 09:30 (Rec: 01/13/21 09:31 [email or web address]) Physical Therapy Plan Discharge Physical Therapy Discharge Reasons No Longer Attending PT Discharge Comments pt was last seen in Oct d/t exhaused insurance benefits. DC pt from PT
== END 2021-01-24 10:18 | disposition home or self-care (01) ==
LOC: PHYS 11:15
PROVIDERS: PCP Family Medicine; Referring Provider Podiatrist Foot & Ankle Surgery; Visit Provider Podiatrist Foot & Ankle Surgery
DX: M72.2 Plantar fascial fibromatosis (principal); M21.6X1 Other acquired deformities of right foot; M21.6X9 Other acquired deformities of unspecified foot
CPT/HCPCS: 95851; 97110; 97140; 97161

== ENCOUNTER → 2020-11-14 12:14 | Outpatient (CLI) | payer OTHER, MEDICAID, SELFPAY ==
[2020-11-14 12:55] LABS: Ur Creatinine Normal (Normal); Ur Specific Gravity Normal (Normal); Urine pH Normal (Normal)
[2020-11-14 12:56] LABS: UR Morphine/Opiate cutoff 300 Positive (Negative); Urine Amphetamines Negative (Negative); Urine Barbiturates Negative (Negative); Urine Benzodiazepines Negative (Negative); Urine Cocaine Negative (Negative); Urine MDMA Negative (Negative); Urine Methadone Negative (Negative); Urine Methamphetamines Negative (Negative); Urine Oxycodone Negative (Negative); Urine Phencyclidine Negative (Negative); Urine Tetrahydrocannabinol Negative (Negative); Urine Tricyclic Antidepressant Negative (Negative)
== END ==
PROVIDERS: PCP Family Medicine; Referring Provider Family Medicine; Visit Provider Family Medicine
DX: Z79.891 Long term (current) use of opiate analgesic (principal)
CPT/HCPCS: 80305

== ENCOUNTER → 2021-09-22 10:33 | Outpatient (CLI) | payer OTHER, MEDICAID, SELFPAY ==
[2021-09-22 11:38] LABS: Appearance Urine UA CLEAR; Bilirubin Urine UA 2+ (NEGATIVE); Color Urine UA YELLOW; Glucose Urine UA NEGATIVE (Negative); Ketones Urine UA NEGATIVE (NEGATIVE); Leukocyte Esterase Urine UA 2+ (NEGATIVE); Nitrite Urine UA NEGATIVE (Negative); Occult Blood Urine UA NEGATIVE (Negative); Protein Urine UA NEGATIVE (Negative); Specific Gravity Urine UA <=1.005 (1.000-1.035); Urobilinogen Urine UA 0.2 E.U./dL (0.2)
[2021-09-22 11:40] LABS: pH Urine UA 6.5 (4.5-8.0)
[2021-09-22 11:48] LABS: Ictotest Urine Negative (Negative)
[2021-09-22 11:49] LABS: Bacteria Urine None Seen; Culture Indicated Urine Specimen Cultured; RBC Urine None Seen (0-5/HPF); Squamous Epithelial Cell Urine 1-5 /HPF (0-5/HPF); WBC Urine 10-30/HPF (0-5/HPF)
== END ==
PROVIDERS: PCP Family Medicine; Referring Provider Family Medicine; Visit Provider Family Medicine
DX: R30.0 Dysuria (principal)
CPT/HCPCS: 81003; 81015; 87086

== ENCOUNTER → 2021-11-21 07:39 | Outpatient (CLI) | payer OTHER, MEDICAID, SELFPAY ==
[2021-11-21 08:50] LABS: Add Manual Diff / Slide Review NO; Basophils Absolute Auto 100 /uL (0-100); Basophils Percent Auto 0.9 % (0-2); Eosinophils Absolute Auto 100 /uL (0-450); Eosinophils Percent Auto 1.5 % (2-4); Hematocrit 36.3 % (36-46); Lymphocytes Absolute Auto 1400 /uL (1100-4500); Lymphocytes Percent Auto 20.6 % (25-40); Mean Corpuscular HGB Conc 33.1 % (30-36); Mean Corpuscular Hemoglobin 28.8 PG (26-34); Monocytes Absolute Auto 400 /uL (0-900); Monocytes Percent Auto 5.9 % (3-14); Neutrophils Absolute Auto 4900 /uL (1500-7000); Neutrophils Percent Auto 71.1 % (50-75); Platelet Count 222 X10^3/uL (150-400); Red Blood Cell Count 4.17 X10^6/uL (4.0-5.2); Red Cell Distribution Width 14.3 % (11.6-14.8); White Blood Cell Count 6.9 X10^3/uL (4.5-11.0)
[2021-11-21 09:00] LABS: Hemoglobin A1C% w Est Avg Glu 5.5 % (4.0-6.0)
[2021-11-21 09:36] LABS: Alanine Aminotransferase 19 IU/L (<35); Albumin 4.3 g/dL (3.5-5.0); Albumin Globulin Ratio 1.5 (1.0-2.8); Alkaline Phosphatase 72 U/L (38-126); Aspartate Aminotransferase 27 IU/L (14-36); BUN Creatinine Ratio 18.1 (6-22); Bilirubin Total 0.5 mg/dL (0.2-1.3); Blood Urea Nitrogen 15 mg/dL (7-17); Calcium 8.8 mg/dL (8.4-10.2); Carbon Dioxide 28 mmol/L (22-32); Chloride 107 mmol/L (98-107); Cholesterol 240 mg/dL (140-199); Estimated Glomerular Filt Rate > 60.0 mL/min (>60); Globulin 2.8 g/dL (1.7-4.1); Glucose 97 mg/dL (80-110); HDL Cholesterol 84 mg/dL (40-60); HEMOLYSIS < 15 (0-50); LDL Cholesterol Calculated 130 mg/dL (<100); Potassium 4.3 mmol/L (3.4-5.1); Sodium 142 mmol/L (137-145); Total Protein 7.1 g/dL (6.3-8.2); Triglycerides 132 mg/dL (35-150)
[2021-11-21 10:00] LABS: TSH w/ Reflex to FT4 4.92 uIU/mL (0.47-4.68)
[2021-11-21 10:26] LABS: Free T4, Direct Thyroxine 1.09 ng/dL (0.78-2.19)
== END ==
PROVIDERS: PCP Family Medicine; Referring Provider Family Medicine; Visit Provider Family Medicine
DX: Z00.01 Encounter for general adult medical examination with abnormal findings (principal); E66.01 Morbid (severe) obesity due to excess calories; R68.89 Other general symptoms and signs; K21.9 Gastro-esophageal reflux disease without esophagitis; Z12.11 Encounter for screening for malignant neoplasm of colon; Z68.37 Body mass index [BMI] 37.0-37.9, adult
CPT/HCPCS: 36415; 80053; 80061; 83036; 84439; 84443; 85025

== ENCOUNTER → 2021-11-28 10:38 | Outpatient (CLI) | payer OTHER, MEDICAID, SELFPAY ==
--- NOTE | 2021-11-28 10:39 | DI.MG.S_ITS ---
BILATERAL DIGITAL SCREENING MAMMOGRAM 3D/2D WITH CAD: 11/28/2021 CLINICAL: Routine screening. Comparison is made to exam dated: 01/25/2015 [facility]. There are scattered fibroglandular elements in both breasts. Current study was also evaluated with a Computer Aided Detection (CAD) system. No significant masses, calcifications, or other findings are seen in either breast. There has been no significant interval change. IMPRESSION: NEGATIVE There is no mammographic evidence of malignancy. A 1 year screening mammogram is recommended. This exam was interpreted at Station ID: [id number]. NOTE: For mammograms, a report in lay terms will be sent to the patient. Approximately 15% of breast malignancies will not be visualized mammographically. In the management of a palpable breast mass, a negative mammogram must not discourage biopsy of a clinically suspicious lesion. Electronically Signed By: George Fofana acr/colby:11/28/2021 11:07:11 letter sent: Normal Exam ACR BI-RADS Category 1: Negative [id number]
== END ==
PROVIDERS: PCP Family Medicine; Referring Provider Family Medicine; Visit Provider Family Medicine
DX: Z12.31 Encounter for screening mammogram for malignant neoplasm of breast (principal)
CPT/HCPCS: 77063; 77067

== ENCOUNTER → 2022-01-26 09:26 | Outpatient (CLI) | payer OTHER, MEDICAID, SELFPAY ==
[2022-01-26 10:47] LABS: COVID19 -Nasal RAPID Negative (Negative)
== END ==
PROVIDERS: PCP Family Medicine; Visit Provider Surgery
DX: Z01.812 Encounter for preprocedural laboratory examination (principal); Z20.822 Contact with and (suspected) exposure to COVID-19
CPT/HCPCS: 87635; C9803

== ENCOUNTER 2022-01-27 06:29 | Day surgery (SDC) | payer OTHER, MEDICAID, SELFPAY ==
[2022-01-27] VITALS (13 sets, daily range): BP systolic 112–168; BP diastolic 46–96; PULSE 66–84; RESP 11–16; TEMP 36.3–36.8; O2SAT 90–98; BMI 20.7
[2022-01-27] MEDS: LACTATED RINGERS 1,000 ML 200 ML IV ×2 (07:13→10:19)
--- NOTE | 2022-01-27 07:39 | PM.HP.1 ---
History of Present Illness History of Present Illness Date Patient Seen: 01/27/22 Time Patient Seen: 07:39 Chief complaint: [facility] Narrative: 61-year-old woman with esophageal dysphagia here for elective esophagoduodenoscopy. Patient History Medical History Acne (~1990) Bronchitis Chicken pox (~1958) Elbow pain (~2012) Encounter for removal of sutures Foot pain (~2012) Gastric ulcer (~1999) GERD (gastroesophageal reflux disease) (~1999) Hemicrania continua History of urinary incontinence (~1980) Migraines Seasonal allergies (~1977) Wrist pain (~2005) Surgical History Anesthesia History of tonsillectomy (~1970) Status post endoscopy (~2000) Status post tubal ligation (~1981) Family & Social History Family History Child Diabetes mellitus Child Age: 41 Environmental allergies Edema Child Age: 37 Fibromyalgia Diabetes mellitus Endometriosis Gallstones Father Heart disease High cholesterol Emphysema lung Mother Diabetes mellitus Hypertension Arthritis Sister Fibromyalgia Cushings syndrome Addisons disease Hyperthyroidism Sister Fibromyalgia High cholesterol Sister Fibromyalgia Emphysema lung COPD (chronic obstructive pulmonary disease) Arthritis Social History: household members spouse Tobacco & Substance use: Tobacco type cigarettes Smoking Status Former smoker Smoking packs per day 0.5 alcohol intake current alcohol intake frequency a few times a month Substance Use Type does not use Meds Home Medications and Allergies Home Medications Medication Instructions Recorded Confirmed Type DISABLED PARKING PERMIT #1 ea 11/05/20 12/18/21 Rx docusate sodium 100 mg capsule 100 mg PO DAILY #30 cap 07/14/21 01/27/22 Rx (Colace) omeprazole 40 mg capsule,delayed See Rx Instructions .ROUTE 10/13/21 01/27/22 Rx release .COMPLEX #180 capsule fluticasone propionate 50 See Rx Instructions .ROUTE 11/17/21 01/27/22 Rx mcg/actuation nasal .COMPLEX #16 g spray,suspension oxybutynin chloride 5 mg tablet See Rx Instructions .ROUTE 11/17/21 01/27/22 Rx .COMPLEX #60 tab etodolac 400 mg tablet 400 mg PO BID #60 tab 12/12/21 01/27/22 Rx pregabalin 150 mg capsule See Rx Instructions .ROUTE 01/13/22 01/27/22 Rx .COMPLEX #30 cap pregabalin 100 mg capsule 100 mg PO DAILY #30 cap 01/15/22 01/27/22 Rx hydrocodone 10 mg-acetaminophen 1 tab PO BID #60 tab 01/27/22 01/27/22 Rx 325 mg tablet Allergies Allergy/AdvReac Type Severity Reaction Status Date / Time meperidine [From DEMEROL] AdvReac Intermediate Difficulty Verified 01/27/22 07:20 waking up, N&V GENERAL ANESTHESIA Allergy Severe BRADYCARDIA, Uncoded 12/18/21 14:45 VERY SLOW TO WAKE UP Exam Vital Signs (past 8 hours): - 01/27/22 06:59 Temperature 97.8 F Pulse Rate 73 Respiratory Rate 16 Blood Pressure 168/92 H Pulse Oximetry 98 Oxygen Delivery Method Room Air Narrative Exam Narrative: General adult woman alert oriented no acute distress Assessment & Plan Assessment & Plan narrative: 61-year-old woman with esophageal dysphagia here for elective esophagoduodenoscopy. Technical details of the procedure were again discussed with the patient. Procedural risks including bleeding, missed diagnosis, esophageal perforation were discussed. Her questions have been answered she is in agreement with this plan. Time Spent With Patient Critical Care time: I spent a total of [] minutes of critical care time on this patient's care today; this time is exclusive of procedural time.
[2022-01-27] MEDS: LIDOCAINE 4% SOLN 50 ML 20 ML TOP (07:47)
[2022-01-27] MEDS: ONDANSETRON 4 MG/2 ML INJ IV (07:49)
[2022-01-27] MEDS: fentaNYL 250 MCG/5 ML INJ 150 MCG IV (07:51)
[2022-01-27] MEDS: MIDAZOLAM 5 MG/5 ML VIAL 8 MG IV (07:51)
--- NOTE | 2022-01-27 08:20 | SUR.PHASEI ---
Patient to phase I recovery after unsuccessful attempt at EGD with moderate sedation; patient unable to tolerate medication; procedure aborted and will re-attempt with an anesthesia provider when available. VSS. Plan to keep patient NPO for now. Called family to notify of events.
--- NOTE | 2022-01-27 08:46 | SUR.PHASEI ---
Patient signed out of phase one recovery and new chart created for anesthesia case.
--- NOTE | 2022-01-27 09:50 | PM.OP.EGD ---
Operative Date/Time/Diagnoses Date of procedure: 01/27/22 Time of procedure: 09:50 Pre-op diagnosis: esophageal dysphagia Post-op diagnosis: same Procedure & Clinicians Study performed: esophagoduodenoscopy Same procedure as scheduled: Yes Indications: dysphagia Surgeon: Josep Magana Procedure Notes Procedure in detail: Time out was performed. Procedural sedation was administered by Anesthesia. A bite block was placed. the scope was inserted into the mouth and advanced through the esophagus and into the stomach. The pylorus was intubated and the duodenum was normal to the 2nd portion. The scope was retroflexed within the stomach and there was a moderate size hiatal hernia. No ulcers, or gastritis. The scope was withdrawn into the esophagus the Z line was seen at 35 cm from the incisions. There was no Stearns's esophagitis or masses or strictures. Stomach was desufflated and scope removed. Patient tolerated procedure well. Complications: none Post-procedure Recommendations: Reflux diet Plan for aftercare: Increase omeprazole to 40 mg twice daily Disposition: same day surgery
[2022-01-27] MEDS: ACETAMINOPHEN 325 MG TABLET 975 MG PO (10:38)
== END 2022-01-27 11:12 | disposition home or self-care (01) ==
PROVIDERS: PCP Family Medicine; Referring Provider Surgery; Visit Provider Surgery
PROC: 0DJ08ZZ Inspection of Upper Intestinal Tract, Via Natural or Artificial Opening Endoscopic (ICD-10-PCS; CPT 43235; principal; 2022-01-27 07:45)
DX: R13.10 Dysphagia, unspecified (principal)
CPT/HCPCS: 43235; J1100; J2250; J2405; J2704; J3010

== ENCOUNTER → 2022-11-07 07:44 | Outpatient (CLI) | payer OTHER, MEDICAID, SELFPAY ==
[2022-11-07 09:13] LABS: Add Manual Diff / Slide Review NO; Basophils Absolute Auto 0 /uL (0-100); Basophils Percent Auto 0.7 % (0-2); Eosinophils Absolute Auto 100 /uL (0-450); Eosinophils Percent Auto 1.6 % (2-4); Hematocrit 39.4 % (36-46); Hemoglobin 13.1 g/dL (12.0-16.0); Lymphocytes Absolute Auto 2000 /uL (1100-4500); Lymphocytes Percent Auto 36.8 % (25-40); Mean Corpuscular HGB Conc 33.3 % (30-36); Mean Corpuscular Hemoglobin 28.4 PG (26-34); Mean Corpuscular Volume 85.5 fL (80-100); Monocytes Absolute Auto 400 /uL (0-900); Monocytes Percent Auto 7.5 % (3-14); Neutrophils Absolute Auto 2900 /uL (1500-7000); Neutrophils Percent Auto 53.4 % (50-75); Platelet Count 263 X10^3/uL (150-400); Red Blood Cell Count 4.61 X10^6/uL (4.0-5.2); Red Cell Distribution Width 15.4 % (11.6-14.8); White Blood Cell Count 5.4 X10^3/uL (4.5-11.0)
[2022-11-07 09:17] LABS: Hemoglobin A1C% w Est Avg Glu 5.8 % (4.0-6.0)
[2022-11-07 10:04] LABS: Alanine Aminotransferase 22 IU/L (<35); Albumin 4.3 g/dL (3.5-5.0); Albumin Globulin Ratio 1.5 (1.0-2.8); Alkaline Phosphatase 73 U/L (38-126); Aspartate Aminotransferase 22 IU/L (14-36); BUN Creatinine Ratio 17.9 (6-22); Bilirubin Total 0.7 mg/dL (0.2-1.3); Blood Urea Nitrogen 17 mg/dL (7-17); Calcium 9.4 mg/dL (8.4-10.2); Carbon Dioxide 26 mmol/L (22-32); Chloride 104 mmol/L (98-107); Cholesterol 238 mg/dL (140-199); Estimated Glomerular Filt Rate > 60 mL/min (>60); Globulin 2.9 g/dL (1.7-4.1); Glucose 91 mg/dL (80-110); HDL Cholesterol 93 mg/dL (40-60); HEMOLYSIS < 15 (0-50); LDL Cholesterol Calculated 125 mg/dL (<100); Potassium 4.2 mmol/L (3.4-5.1); Sodium 140 mmol/L (137-145); Total Protein 7.2 g/dL (6.3-8.2); Triglycerides 100 mg/dL (35-150)
== END ==
PROVIDERS: PCP Nurse Practitioner Family; Referring Provider Nurse Practitioner Family; Visit Provider Nurse Practitioner Family
DX: Z00.00 Encounter for general adult medical examination without abnormal findings (principal)
CPT/HCPCS: 36415; 80053; 80061; 83036; 85025